=== PATIENT | male | born 1990 | race Caucasian/White ===

== ENCOUNTER 2016-12-06 09:28 | Emergency (ER) | payer MEDICAID ==
[~2016-12-06] VITALS: Ht 188 cm; Wt 113.4 kg
[2016-12-06 09:35] VITALS: BP 144/95
[2016-12-06 09:59] LABS: Basophils # (auto) 0 uL; Basophils % (auto) 0.5 % (0.0-2.0); Eosinophils # (auto) 0.1 uL; Eosinophils % (auto) 1.1 % (0.0-7.0); Hematocrit 50.3 % (41.0-53.0); Hemoglobin 16.9 g/dL (13.5-17.5); Lymphocytes # (auto) 1.3 uL; Lymphocytes % (auto) 16.8 % (10.0-50.0); Mean Corpuscular Hgb Conc. 33.6 g/dL (32.0-36.0); Mean Corpuscular Volume 89.2 fL (80.0-100.0); Mean Platelet Volume 7.8 fL (7.4-10.4); Monocytes # (auto) 1.2 uL; Monocytes % (auto) 16.3 % (0.0-12.0); Neutrophils % (auto) 65.3 % (37.0-80.0); Platelet Count (auto) 205 10^3/uL (140-450); Red Cell Distribution Width 12.8 % (11.6-16.0); White Blood Cell 7.6 10^3/uL (4.4-10.8)
[2016-12-06 10:26] LABS: Albumin 4.2 g/dL (3.4-5.0); BUN/Creatinine Ratio 10.7; Bilirubin, Total 0.6 mg/dL (0.2-1.0); Potassium 3.5 mmol/L (3.5-5.1); Total Protein 7.9 g/dL (6.4-8.2)
[2016-12-06] MEDS ORDERED: SODIUM CHLORIDE 0.9% 1,000 ML IV ONE (11:59)
== END 2016-12-06 14:57 | disposition home or self-care (01) ==
LOC: ER 09:29
DX: B34.9 Viral infection, unspecified (principal)
CPT/HCPCS: 36415; 74176; 80053; 82150; 85025; 96360; 99285; J7030

== ENCOUNTER 2022-01-26 11:40 | Inpatient (IN) | payer MEDICAID ==
[~2022-01-26] VITALS: Ht 190.5 cm; Wt 117.9 kg
[2022-01-26] MEDS ORDERED: MORPHINE SULFATE 4 MG/ML SYR/VIAL IV ONE (12:00)
[2022-01-26] MEDS ORDERED: ONDANSETRON HCL 4 MG/2 ML VIAL IV ONE (12:00)
[2022-01-26] MEDS ORDERED: SODIUM CHLORIDE 0.9% 1,000 ML IVB ONE (12:00)
[2022-01-26 12:22] LABS: Basophils # (auto) 0.1 10 ^3/uL (0-0.2); Basophils % (auto) 0.8 % (0.0-2.0); Eosinophils # (auto) 0.1 10 ^3/uL (0-0.8); Eosinophils % (auto) 1.3 % (0.0-7.0); Hematocrit 50.4 % (41.0-53.0); Hemoglobin 17.6 g/dL (13.5-17.5); Lymphocytes # (auto) 2.3 10 ^3/uL (0.4-5.4); Lymphocytes % (auto) 21.3 % (10.0-50.0); Mean Corpuscular Hemoglobin 31.3 pg (28.0-32.0); Mean Corpuscular Hgb Conc. 34.9 g/dL (32.0-36.0); Mean Corpuscular Volume 89.9 fL (80.0-100.0); Monocytes # (auto) 0.8 10 ^3/uL (0-1.3); Neutrophils # (auto) 7.5 10 ^3/uL (1.6-8.6); Neutrophils % (auto) 69.6 % (37.0-80.0); Nucleated Red Blood Cells % 0.1 %; White Blood Cell 10.8 10^3/uL (4.4-10.8)
[2022-01-26 12:28] LABS: Albumin 4.3 g/dL (3.4-5.0); BUN/Creatinine Ratio 10.4; Calcium 9.6 mg/dL (8.5-10.1); INR 1.01 (0.9-1.15); Partial Thromboplastin Time 27.7 sec (23.6-33.0); Potassium 3.6 mmol/L (3.5-5.1)
[2022-01-26 12:31] LABS: Bilirubin, Total 0.6 mg/dL (0.2-1.0); Total Protein 8.4 g/dL (6.4-8.2)
[2022-01-26 12:45] VITALS: BP 131/81
[2022-01-26] MEDS ORDERED: IOHEXOL 300 MG/ML 100ML BOTTLE IJ ONE (13:32)
[2022-01-26] MEDS ORDERED: KETOROLAC TROMETH 30 MG/ML 1ML VIAL IV ONE (14:30)
[2022-01-26] MEDS ORDERED: SOD CHL 0.9%/ KCL 20MEQ 1,000 ML IV SCH (15:00)
[2022-01-26] MEDS ORDERED: MORPHINE SULFATE 4 MG/ML SYR/VIAL IV PRN (15:00)
[2022-01-26] MEDS ORDERED: ACETAMINOPHEN 325 MG TAB PO PRN (15:00)
[2022-01-26] MEDS ORDERED: PROMETHAZINE HCL 25 MG/ML 1ML IM PRN (15:00)
[2022-01-26] MEDS ORDERED: ONDANSETRON HCL 4 MG/2 ML VIAL IV PRN (15:00)
[2022-01-26] MEDS ORDERED: HYDROcodone-ACET 5/325MG TAB PO PRN (15:00)
[2022-01-26 16:04] LABS: Amphetamine Screen, Urine NEGATIVE (NEGATIVE); Barbiturate Scree,Urine NEGATIVE (NEGATIVE); Benzodiazephine Screen, Urine NEGATIVE (NEGATIVE); Cannabinoid Screen, Urine POSITIVE (NEGATIVE); Cocaine Screen, Urine NEGATIVE (NEGATIVE); Opiate Scree,Urine POSITIVE (NEGATIVE); Phencyclidine Screen, Urine NEGATIVE (NEGATIVE)
[2022-01-26 16:21] LABS: Urine Bacteria NONE SEEN /hpf (None Seen); Urine Blood 2+ /uL (Negative); Urine Mucus FEW (None Seen); Urine Specific Gravity > 1.050 (1.001-1.035); Urine WBC 12 /hpf (0 - 3)
[2022-01-26] MEDS ORDERED: ONDA-144 PO (17:00)
[2022-01-26] MEDS ORDERED: TRAM50TA2 PO (17:00)
== END 2022-01-26 17:21 | disposition home or self-care (01) | DRG 465 ==
LOC: ER 11:40 → TELE 14:36
PROVIDERS: ADMIT Internal Medicine; ATTEND Internal Medicine
DX: N13.2 Hydronephrosis with renal and ureteral calculous obstruction (principal); F12.90 Cannabis use, unspecified, uncomplicated; F17.210 Nicotine dependence, cigarettes, uncomplicated
CPT/HCPCS: 36415; 74177; 76775; 80053; 80307; 81001; 83690; 85025; 85610; 85730; 96361; 96365; 96375; G0378; J1885; J2405

== ENCOUNTER 2022-03-14 22:42 | Emergency (ER) | payer MEDICAID ==
[~2022-03-14] VITALS: Ht 190.5 cm; Wt 113.4 kg
[~2022-03-14 22:42] MED LIST: ONDA-144 PO
[2022-03-14] MEDS ORDERED: ONDANSETRON HCL 4 MG/2 ML VIAL IV ONE (23:15)
[2022-03-14] MEDS ORDERED: ONDANSETRON HCL 4 MG/2 ML VIAL ONE (23:20)
[2022-03-14] MEDS ORDERED: SODIUM CHLORIDE 0.9% 1,000 ML IV ONE (23:30)
[2022-03-15] MEDS ORDERED: MORPHINE SULFATE 4 MG/ML SYR/VIAL IV ONE (00:15)
[2022-03-15] MEDS ORDERED: SODIUM CHLORIDE 0.9% 1,000 ML IVB ONE (00:15)
[2022-03-15] MEDS ORDERED: IOHEXOL 350 MG/ML 100ML IJ ONE (00:31)
[2022-03-15] MEDS ORDERED: ONDANSETRON HCL 4 MG/2 ML VIAL IV ONE (00:45)
[2022-03-15 01:15] LABS: Basophils # (auto) 0 10 ^3/uL (0-0.2); Basophils % (auto) 0.2 % (0.0-2.0); Eosinophils # (auto) 0 10 ^3/uL (0-0.8); Eosinophils % (auto) 0.3 % (0.0-7.0); Hematocrit 47.7 % (41.0-53.0); Hemoglobin 16.5 g/dL (13.5-17.5); Lymphocytes # (auto) 1.6 10 ^3/uL (0.4-5.4); Lymphocytes % (auto) 11.5 % (10.0-50.0); Mean Corpuscular Hemoglobin 31.2 pg (28.0-32.0); Mean Corpuscular Hgb Conc. 34.6 g/dL (32.0-36.0); Monocytes # (auto) 0.6 10 ^3/uL (0-1.3); Monocytes % (auto) 4.7 % (0.0-12.0); Neutrophils # (auto) 11.4 10 ^3/uL (1.6-8.6); Neutrophils % (auto) 83.3 % (37.0-80.0); Red Cell Distribution Width 13.1 % (11.8-14.3); White Blood Cell 13.7 10^3/uL (4.4-10.8)
[2022-03-15 01:35] LABS: Albumin 4.2 g/dL (3.4-5.0); BUN/Creatinine Ratio 7.1; Calcium 9.1 mg/dL (8.5-10.1); Potassium 3.6 mmol/L (3.5-5.1)
[2022-03-15 01:38] LABS: Bilirubin, Total 0.6 mg/dL (0.2-1.0); Lactic Acid w/Reflex 3.1 mmol/L (0.4-2.0); Total Protein 7.9 g/dL (6.4-8.2)
[2022-03-15] MEDS ORDERED: KETOROLAC TROMETH 30 MG/ML 1ML VIAL IV ONE (02:45)
[2022-03-15 02:54] LABS: Urine Bacteria NONE SEEN /hpf (None Seen); Urine Blood 2+ /uL (Negative); Urine Mucus FEW (None Seen); Urine WBC 1 /hpf (0 - 3)
[2022-03-15 02:55] LABS: Urine Specific Gravity > 1.050 (1.001-1.035)
[2022-03-15 03:00] VITALS: BP 101/43
[2022-03-15] MEDS ORDERED: IBUP600T28 PO (03:31)
== END 2022-03-15 03:49 | disposition home or self-care (01) ==
LOC: ER 22:42
DX: N20.1 Calculus of ureter (principal); F17.210 Nicotine dependence, cigarettes, uncomplicated; F12.10 Cannabis abuse, uncomplicated
CPT/HCPCS: 36415; 74177; 80053; 81001; 83605; 85025; 96361; 96374; 96375; 96376; 99285; J1885; J2270; J2405; J7030; Q9967

== ENCOUNTER 2022-03-28 10:50 | Inpatient (IN) | payer MEDICAID ==
[~2022-03-28] VITALS: Ht 190.5 cm; Wt 122.3 kg
[~2022-03-28 10:50] MED LIST changes: +IBUP600T28 PO
[2022-03-28] MEDS ORDERED: FAMOTIDINE (10MG/ML) 2ML VL IV ONE (11:45)
[2022-03-28] MEDS ORDERED: ALUM & MAG HYDROX-SIMETH LIQ(MAALOX) 30 ML PO ONE (11:45)
[2022-03-28] MEDS ORDERED: LACTATED RINGER'S 1,000 ML IV ONE ×2 (11:45→15:30)
[2022-03-28] MEDS ORDERED: ONDANSETRON HCL 4 MG/2 ML VIAL IV ONE ×2 (11:45→13:30)
[2022-03-28 11:48] LABS: Urine Bacteria NONE SEEN /hpf (None Seen); Urine Blood 3+ /uL (Negative); Urine Mucus FEW (None Seen); Urine Specific Gravity 1.039 (1.001-1.035); Urine WBC 3 /hpf (0 - 3)
[2022-03-28 12:00] LABS: Basophils # (auto) 0.1 10 ^3/uL (0-0.2); Basophils % (auto) 0.5 % (0.0-2.0); Eosinophils # (auto) 0.2 10 ^3/uL (0-0.8); Eosinophils % (auto) 1.4 % (0.0-7.0); Hematocrit 50.2 % (41.0-53.0); Hemoglobin 17.3 g/dL (13.5-17.5); Lymphocytes # (auto) 2.2 10 ^3/uL (0.4-5.4); Lymphocytes % (auto) 19.5 % (10.0-50.0); Mean Corpuscular Hemoglobin 31.2 pg (28.0-32.0); Mean Corpuscular Hgb Conc. 34.5 g/dL (32.0-36.0); Mean Corpuscular Volume 90.4 fL (80.0-100.0); Monocytes % (auto) 9.1 % (0.0-12.0); Neutrophils # (auto) 7.8 10 ^3/uL (1.6-8.6); Neutrophils % (auto) 69.5 % (37.0-80.0); Red Blood Cells 5.55 10^6/uL (4.5-5.90); Red Cell Distribution Width 13.5 % (11.8-14.3); White Blood Cell 11.2 10^3/uL (4.4-10.8)
[2022-03-28 12:10] LABS: Amphetamine Screen, Urine NEGATIVE (NEGATIVE); Barbiturate Scree,Urine NEGATIVE (NEGATIVE); Benzodiazephine Screen, Urine NEGATIVE (NEGATIVE); Cocaine Screen, Urine NEGATIVE (NEGATIVE); Opiate Scree,Urine POSITIVE (NEGATIVE); Phencyclidine Screen, Urine NEGATIVE (NEGATIVE)
[2022-03-28 12:18] LABS: Cannabinoid Screen, Urine POSITIVE (NEGATIVE)
[2022-03-28 12:51] LABS: Albumin 4.8 g/dL (3.4-5.0); BUN/Creatinine Ratio 11.2; Potassium 3.7 mmol/L (3.5-5.1)
[2022-03-28 12:54] LABS: Bilirubin, Total 1.3 mg/dL (0.2-1.0); Total Protein 8.7 g/dL (6.4-8.2)
[2022-03-28] MEDS ORDERED: ONDANSETRON HCL 4 MG/2 ML VIAL ONE (13:16)
[2022-03-28] MEDS ORDERED: METOCLOPRAMIDE HCL 5MG/ml INJ 2ml VIAL IV ONE (14:00)
[2022-03-28] MEDS ORDERED: NITROGLYCERIN 0.4 MG SL TAB SL PRN (14:15)
[2022-03-28] MEDS ORDERED: MORPHINE SULFATE INJECTION 2 MG/ML SYRG IV PRN (14:30)
[2022-03-28] MEDS ORDERED: MORPHINE SULFATE INJECTION 2 MG/ML SYRG IV ONE (14:30)
[2022-03-28] MEDS ORDERED: DOCUSATE SOD 100 MG CAP PO PRN (15:30)
[2022-03-28] MEDS ORDERED: cefTRIAXone 1GM/50ML D5W 50 ML IV ONE ×2 (15:30→16:00)
[2022-03-28] MEDS ORDERED: KETOROLAC TROMETH 30 MG/ML 1ML VIAL IV PRN (15:30)
[2022-03-28] MEDS ORDERED: LORazepam 0.5 MG TAB PO PRN (15:30)
[2022-03-28] MEDS ORDERED: hydrALAZINE HCL 20 MG/ML VL IV PRN (15:30)
[2022-03-28 16:27] LABS: Magnesium 2.5 mg/dL (1.6-2.6); Phosphorus 2.2 mg/dL (2.5-4.90)
[2022-03-28] MEDS ORDERED: MANNITOL FTV 25% 12.5 GM/50 ML 50 ML IV ONE ×2 (16:45→18:15)
[2022-03-28] MEDS ORDERED: SODIUM CHLORIDE 0.9% 1,000 ML IV ONE (16:45)
[2022-03-28 17:33] LABS: INR 1.1 (0.9-1.15); Partial Thromboplastin Time 29.5 sec (23.6-33.0)
[2022-03-28] MEDS: TAMSULOSIN HYDROCHLORIDE 0.4 MG CAP PO SCH (18:25)
[2022-03-28] MEDS: SODIUM CHLORIDE 0.9% 1,000 ML IV SCH (18:53)
[2022-03-28 19:50] VITALS: BP 146/75
[2022-03-28] MEDS: MORPHINE SULFATE INJECTION 2 MG/ML SYRG IV PRN (21:30)
[2022-03-28 22:00] VITALS: BP 146/75
[2022-03-29] MEDS: HYDROcodone-ACET 5/325MG TAB PO PRN ×2 (00:53→21:47)
[2022-03-29 05:07] VITALS: BP 145/70
[2022-03-29 06:50] LABS: Magnesium 2.2 mg/dL (1.6-2.6); Potassium 3.8 mmol/L (3.5-5.1)
[2022-03-29 07:01] LABS: Basophils # (auto) 0 10 ^3/uL (0-0.2); Basophils % (auto) 0.1 % (0.0-2.0); Eosinophils # (auto) 0 10 ^3/uL (0-0.8); Eosinophils % (auto) 0.2 % (0.0-7.0); Hematocrit 42.2 % (41.0-53.0); Hemoglobin 14.9 g/dL (13.5-17.5); INR 1.07 (0.9-1.15); Lymphocytes # (auto) 2.1 10 ^3/uL (0.4-5.4); Lymphocytes % (auto) 13.7 % (10.0-50.0); Mean Corpuscular Hemoglobin 31.6 pg (28.0-32.0); Mean Corpuscular Hgb Conc. 35.2 g/dL (32.0-36.0); Mean Corpuscular Volume 89.9 fL (80.0-100.0); Monocytes # (auto) 1.5 10 ^3/uL (0-1.3); Monocytes % (auto) 9.6 % (0.0-12.0); Neutrophils # (auto) 11.6 10 ^3/uL (1.6-8.6); Neutrophils % (auto) 76.4 % (37.0-80.0); Partial Thromboplastin Time 30.2 sec (23.6-33.0); Red Cell Distribution Width 13.2 % (11.8-14.3); White Blood Cell 15.2 10^3/uL (4.4-10.8)
[2022-03-29 07:02] LABS: Albumin 3.7 g/dL (3.4-5.0); BUN/Creatinine Ratio 9.9; Bilirubin, Total 0.8 mg/dL (0.2-1.0); CRP High Sensitivity 2.96 mg/dL (< 0.3); Calcium 8.9 mg/dL (8.5-10.1); Total Protein 7.1 g/dL (6.4-8.2); Uric Acid 9.7 mg/dL (3.5-7.2)
[2022-03-29] MEDS: SODIUM CHLORIDE 0.9% 1,000 ML IV SCH (08:10)
[2022-03-29 09:00] VITALS: BP 118/74
[2022-03-29] MEDS ORDERED: cefTRIAXone 1GM/50ML D5W 50 ML IV SCH (09:00)
[2022-03-29] MEDS ORDERED: MANNITOL FTV 25% 12.5 GM/50 ML 50 ML IV ONE ×2 (09:15→18:30)
[2022-03-29] MEDS ORDERED: SODIUM CHLORIDE 0.9% 1,000 ML IV ONE (09:15)
[2022-03-29 10:32] LABS: Amphetamine Screen, Urine NEGATIVE (NEGATIVE); Barbiturate Scree,Urine NEGATIVE (NEGATIVE); Benzodiazephine Screen, Urine NEGATIVE (NEGATIVE); Cannabinoid Screen, Urine POSITIVE (NEGATIVE); Opiate Scree,Urine POSITIVE (NEGATIVE); Phencyclidine Screen, Urine NEGATIVE (NEGATIVE); Protein, Urine 89.7 mg/dL (0.0-11.9)
[2022-03-29 10:39] LABS: Cocaine Screen, Urine NEGATIVE (NEGATIVE)
[2022-03-29] MEDS: FAMOTIDINE (10MG/ML) 2ML VL IV SCH (11:42)
[2022-03-29] MEDS: MORPHINE SULFATE INJECTION 2 MG/ML SYRG IV PRN (11:43)
[2022-03-29] MEDS: cefTRIAXone 1GM/50ML D5W 50 ML IV SCH (11:44)
[2022-03-29] MEDS: ENOXAPARIN SOD 40 MG/0.4 ML SYRINGE SC SCH (11:44)
[2022-03-29] MEDS ORDERED: ePHEDrine SULFATE 50 MG/ML AMP IV ONE (12:29)
[2022-03-29 13:00] VITALS: BP 161/91
[2022-03-29] MEDS ORDERED: SUCCINYLCHOLINE CHLORIDE 20 MG/ML 10ML VIAL IV ONE (16:34)
[2022-03-29] MEDS ORDERED: MIDAZOLAM HCL 2MG/2ML 2ml VIAL (1mg/ml) ONE (16:40)
[2022-03-29] MEDS ORDERED: fentaNYL CITRATE 100 MCG/2 ML VL ONE (16:40)
[2022-03-29] MEDS ORDERED: LIDOCAINE HCL 100 MG/5ML (2%) SYRG INJ IV ONE (17:15)
[2022-03-29] MEDS ORDERED: PROPOFOL 10 MG/ML 20 ML IV ONE (17:15)
[2022-03-29] MEDS ORDERED: METOCLOPRAMIDE HCL 5MG/ml INJ 2ml VIAL ONE (17:16)
[2022-03-29] MEDS ORDERED: ONDANSETRON HCL 4 MG/2 ML VIAL ONE (17:16)
[2022-03-29] MEDS ORDERED: DexAMETHasone SOD PHOS 10MG/1ML VIAL INJ ONE (17:16)
[2022-03-29] MEDS: TAMSULOSIN HYDROCHLORIDE 0.4 MG CAP PO SCH (18:00)
[2022-03-29] MEDS ORDERED: MANNITOL FTV 25% 12.5 GM/50 ML 0 ML IV ONE (18:28)
[2022-03-29] MEDS ORDERED: METOCLOPRAMIDE HCL 5MG/ml INJ 2ml VIAL IV PRN (18:30)
[2022-03-29] MEDS ORDERED: ONDANSETRON HCL 4 MG/2 ML VIAL IV PRN (18:30)
[2022-03-29] MEDS ORDERED: fentaNYL CITRATE 100 MCG/2 ML VL IV PRN (18:30)
[2022-03-29] MEDS: HYDROmorphone HCL 2 MG/ML VL/or syr IV PRN ×3 (18:34→18:54)
[2022-03-29 22:00] VITALS: BP 132/71
[2022-03-30] MEDS: SODIUM CHLORIDE 0.9% 1,000 ML IV SCH (00:50)
[2022-03-30 05:00] VITALS: BP 107/67
[2022-03-30] MEDS: HYDROcodone-ACET 5/325MG TAB PO PRN (05:27)
[2022-03-30 06:25] LABS: Basophils # (auto) 0 10 ^3/uL (0-0.2); Eosinophils # (auto) 0 10 ^3/uL (0-0.8); Hematocrit 40.5 % (41.0-53.0); Hemoglobin 14.1 g/dL (13.5-17.5); Lymphocytes # (auto) 0.7 10 ^3/uL (0.4-5.4); Lymphocytes % (auto) 6.5 % (10.0-50.0); Mean Corpuscular Hemoglobin 31.1 pg (28.0-32.0); Mean Corpuscular Hgb Conc. 34.9 g/dL (32.0-36.0); Mean Corpuscular Volume 89.2 fL (80.0-100.0); Monocytes # (auto) 0.3 10 ^3/uL (0-1.3); Neutrophils # (auto) 10.2 10 ^3/uL (1.6-8.6); Neutrophils % (auto) 90.5 % (37.0-80.0); Red Blood Cells 4.53 10^6/uL (4.5-5.90); White Blood Cell 11.3 10^3/uL (4.4-10.8)
[2022-03-30 06:30] LABS: BUN/Creatinine Ratio 11.4; Calcium 8.9 mg/dL (8.5-10.1); Potassium 4.2 mmol/L (3.5-5.1)
[2022-03-30 08:00] VITALS: BP 101/56
[2022-03-30] MEDS: FAMOTIDINE (10MG/ML) 2ML VL IV SCH (08:09)
[2022-03-30] MEDS: cefTRIAXone 1GM/50ML D5W 50 ML IV SCH (08:09)
[2022-03-30] MEDS: ENOXAPARIN SOD 40 MG/0.4 ML SYRINGE SC SCH (10:00)
[2022-03-30 12:00] VITALS: BP 120/79
[2022-03-30 12:51] VITALS: BP 101/56
== END 2022-03-30 12:50 | disposition home or self-care (01) | DRG 446 ==
LOC: ER 10:50 → OVERFLOW 14:14 → CENTRAL 19:49
PROVIDERS: ADMIT Hospitalist; ATTEND Internal Medicine
PROC: 0TC78ZZ Extirpation of Matter from Left Ureter, Via Natural or Artificial Opening Endoscopic (ICD-10-PCS; principal; 2022-03-29 16:49)
DX: N13.6 Pyonephrosis (principal); N17.0 Acute kidney failure with tubular necrosis; E66.01 Morbid (severe) obesity due to excess calories; F17.210 Nicotine dependence, cigarettes, uncomplicated; Z20.822 Contact with and (suspected) exposure to COVID-19; N18.31 Chronic kidney disease, stage 3a; N20.2 Calculus of kidney with calculus of ureter; Z68.33 Body mass index [BMI] 33.0-33.9, adult
CPT/HCPCS: 36415; 74018; 74176; 76775; 80048; 80053; 80061; 80307; 81001; 82550; 82728; 83036; 83615; 83690; 83735; 83880; 84100; 84156; 84443; 84484; 84550; 85025; 85379; 85610; 85652; 85730; 86141; 86850; 86900; 86901; 87040; 87086; 93005; 96361; 96365; 96367; 96375; 96376; G0378; J0330; J0696; J1100; J2250; J2405; J2704; J3490

== ENCOUNTER 2022-07-13 17:35 | Inpatient (IN) | payer MEDICAID, OTHER ==
[~2022-07-13] VITALS: Ht 190.5 cm; Wt 112.9 kg
[2022-07-13] MEDS ORDERED: PROCHLORPERAZINE EDISYLATE 5 MG/ML 2ML VIAL IV ONE (18:45)
[2022-07-13] MEDS ORDERED: SODIUM CHLORIDE 0.9% 1,000 ML IVB ONE (18:45)
[2022-07-13] MEDS ORDERED: MORPHINE SULFATE INJ 2 MG/ml SYRG IV ONE (18:45)
[2022-07-13] MEDS ORDERED: PANTOPRAZOLE 40 MG/10 ML VIAL INJ IV ONE (18:45)
[2022-07-13 19:23] LABS: Potassium 3.4 mmol/L (3.5-5.1)
[2022-07-13 19:26] LABS: Basophils # (auto) 0.1 10 ^3/uL (0-0.2); Basophils % (auto) 0.3 % (0.0-2.0); Eosinophils # (auto) 0 10 ^3/uL (0-0.8); Neutrophils % (auto) 81.9 % (37.0-80.0)
[2022-07-13 19:28] LABS: Lymphocytes # (auto) 2.2 10 ^3/uL (0.4-5.4); Lymphocytes % (auto) 10.5 % (10.0-50.0); Mean Corpuscular Hemoglobin 30.3 pg (28.0-32.0); Mean Corpuscular Hgb Conc. 33.8 g/dL (32.0-36.0); Mean Corpuscular Volume 89.8 fL (80.0-100.0); Monocytes # (auto) 1.5 10 ^3/uL (0-1.3); Monocytes % (auto) 7.3 % (0.0-12.0); Nucleated Red Blood Cells % 1.5 %; Red Blood Cells 7.01 10^6/uL (4.5-5.90); Red Cell Distribution Width 13.3 % (11.8-14.3); White Blood Cell 20.7 10^3/uL (4.4-10.8)
[2022-07-13 19:30] LABS: Albumin 6.5 g/dL (3.4-5.0); Amylase 61 U/L (25-115); BUN/Creatinine Ratio 6.4; Bilirubin, Total 1.5 mg/dL (0.2-1.0); Calcium 12.1 mg/dL (8.5-10.1); Lipase 112 U/L (73-393); Total Protein 11.9 g/dL (6.4-8.2)
[2022-07-13 19:41] LABS: Hematocrit 62.9 % (41.0-53.0); Hemoglobin 21.3 g/dL (13.5-17.5)
[2022-07-13] MEDS ORDERED: HYDROcodone-ACET 5/325MG TAB PO PRN (21:30)
[2022-07-13] MEDS ORDERED: ACETAMINOPHEN 325 MG TAB PO PRN (21:30)
[2022-07-13] MEDS ORDERED: MORPHINE SULFATE INJ 2 MG/ml SYRG IV PRN ×2 (21:30→22:15)
[2022-07-13] MEDS ORDERED: cefTRIAXone 1GM/50ML D5W 50 ML IV ONE (21:30)
[2022-07-13] MEDS ORDERED: DEXTROSE (50%) 50ML SYRG IV PRN (21:30)
[2022-07-13] MEDS ORDERED: PROCHLORPERAZINE EDISYLATE 5 MG/ML 2ML VIAL IV PRN (21:30)
[2022-07-13] MEDS ORDERED: DOCUSATE SOD 100 MG CAP PO PRN (21:30)
[2022-07-13] MEDS: SODIUM CHLOR 0.9% PF (SALINE LOCK) 10ML VIAL/SYR IV SCH (22:00)
[2022-07-13] MEDS ORDERED: NITROGLYCERIN 0.4 MG SL TAB SL PRN (22:15)
[2022-07-13] MEDS ORDERED: POTASSIUM CHL 20 Meq TABLET PO ONE (23:00)
[2022-07-14 01:20] VITALS: BP 146/96
[2022-07-14] MEDS: ONDANSETRON HCL 4 MG/2 ML VIAL IV PRN (01:55)
[2022-07-14] MEDS: ACCU-CHEK COMFORT CURVE STRIP VI SCH ×4 (04:10→12:05)
[2022-07-14] MEDS: InsuLIN REG 1unit/0.01ml Soln (100units/ml) SC SCH ×4 (04:12→12:00)
[2022-07-14 04:45] LABS: Basophils # (auto) 0.1 10 ^3/uL (0-0.2); Basophils % (auto) 0.3 % (0.0-2.0); Eosinophils # (auto) 0 10 ^3/uL (0-0.8); Nucleated Red Blood Cells % 0.1 %; White Blood Cell 19.7 10^3/uL (4.4-10.8)
[2022-07-14 04:49] LABS: Hematocrit 52.6 % (41.0-53.0); Hemoglobin 17.7 g/dL (13.5-17.5); Lymphocytes # (auto) 1.4 10 ^3/uL (0.4-5.4); Lymphocytes % (auto) 7.3 % (10.0-50.0); Mean Corpuscular Hemoglobin 29.9 pg (28.0-32.0); Mean Corpuscular Hgb Conc. 33.7 g/dL (32.0-36.0); Mean Corpuscular Volume 88.7 fL (80.0-100.0); Monocytes # (auto) 0.9 10 ^3/uL (0-1.3); Monocytes % (auto) 4.7 % (0.0-12.0); Neutrophils # (auto) 17.3 10 ^3/uL (1.6-8.6); Neutrophils % (auto) 87.7 % (37.0-80.0); Red Blood Cells 5.93 10^6/uL (4.5-5.90); Red Cell Distribution Width 12.9 % (11.8-14.3)
[2022-07-14 04:50] LABS: Albumin 4.8 g/dL (3.4-5.0); Calcium 9.7 mg/dL (8.5-10.1)
[2022-07-14 04:51] VITALS: BP 136/88
[2022-07-14 04:54] LABS: BUN/Creatinine Ratio 10.9; Bilirubin, Total 0.9 mg/dL (0.2-1.0)
[2022-07-14 05:53] LABS: Urine Bacteria FEW /hpf (None Seen); Urine Blood 1+ /uL (Negative); Urine Hyaline Cast MANY /lpf (0 - 2); Urine Mucus FEW (None Seen); Urine Specific Gravity 1.032 (1.001-1.035); Urine WBC 29 /hpf (0 - 3)
[2022-07-14] MEDS: SODIUM CHLOR 0.9% PF (SALINE LOCK) 10ML VIAL/SYR IV SCH ×3 (06:00→21:30)
[2022-07-14] MEDS: HEPARIN SODIUM (PORCINE) 5000 UNITS/ML 1ML VIAL SC SCH ×2 (08:11→21:29)
[2022-07-14] MEDS: cefTRIAXone 1GM/50ML D5W 50 ML IV SCH (08:11)
[2022-07-14 09:00] VITALS: BP 138/89
[2022-07-14] MEDS ORDERED: SODIUM CHLORIDE 0.9% 1,000 ML IV SCH (10:15)
[2022-07-14] MEDS: SODIUM CHLORIDE 0.9% 1,000 ML IV SCH ×2 (11:23→20:47)
[2022-07-14 12:00] VITALS: BP 141/92
[2022-07-14 16:22] LABS: Basophils # (auto) 0.1 10 ^3/uL (0-0.2); Basophils % (auto) 0.4 % (0.0-2.0); Eosinophils # (auto) 0 10 ^3/uL (0-0.8); Eosinophils % (auto) 0.2 % (0.0-7.0); Hematocrit 49.4 % (41.0-53.0); Hemoglobin 16.6 g/dL (13.5-17.5); Lymphocytes # (auto) 2.8 10 ^3/uL (0.4-5.4); Lymphocytes % (auto) 15.2 % (10.0-50.0); Mean Corpuscular Hemoglobin 29.9 pg (28.0-32.0); Mean Corpuscular Hgb Conc. 33.6 g/dL (32.0-36.0); Monocytes # (auto) 1.6 10 ^3/uL (0-1.3); Monocytes % (auto) 8.9 % (0.0-12.0); Neutrophils # (auto) 13.9 10 ^3/uL (1.6-8.6); Neutrophils % (auto) 75.3 % (37.0-80.0); Red Blood Cells 5.55 10^6/uL (4.5-5.90); Red Cell Distribution Width 12.9 % (11.8-14.3); White Blood Cell 18.4 10^3/uL (4.4-10.8)
[2022-07-14 16:26] LABS: % Iron Saturation 62.5 % (20-55); Albumin 4.3 g/dL (3.4-5.0); Calcium 9.2 mg/dL (8.5-10.1); Potassium 3.2 mmol/L (3.5-5.1)
[2022-07-14 16:29] LABS: BUN/Creatinine Ratio 15.4; Bilirubin, Total 0.9 mg/dL (0.2-1.0); Total Protein 8.2 g/dL (6.4-8.2)
[2022-07-14 17:00] VITALS: BP 125/72
[2022-07-14] MEDS ORDERED: POTASSIUM EFFERVESENT TAB 25 MEQ GT ONE (17:45)
[2022-07-14] MEDS ORDERED: POTASSIUM EFFERVESENT TAB 25 MEQ PO ONE (18:00)
[2022-07-14 22:00] VITALS: BP 118/54
[2022-07-15 05:00] VITALS: BP 111/54
[2022-07-15] MEDS: SODIUM CHLOR 0.9% PF (SALINE LOCK) 10ML VIAL/SYR IV SCH ×3 (05:44→21:21)
[2022-07-15] MEDS: SODIUM CHLORIDE 0.9% 1,000 ML IV SCH ×3 (05:45→12:15)
[2022-07-15 08:08] LABS: Basophils # (auto) 0 10 ^3/uL (0-0.2); Basophils % (auto) 0.3 % (0.0-2.0); Eosinophils # (auto) 0.1 10 ^3/uL (0-0.8); Eosinophils % (auto) 0.9 % (0.0-7.0); Hematocrit 44.9 % (41.0-53.0); Hemoglobin 15.3 g/dL (13.5-17.5); Lymphocytes # (auto) 2.3 10 ^3/uL (0.4-5.4); Lymphocytes % (auto) 21.7 % (10.0-50.0); Mean Corpuscular Hemoglobin 30.5 pg (28.0-32.0); Mean Corpuscular Hgb Conc. 34.1 g/dL (32.0-36.0); Mean Corpuscular Volume 89.6 fL (80.0-100.0); Monocytes # (auto) 1.2 10 ^3/uL (0-1.3); Monocytes % (auto) 10.9 % (0.0-12.0); Neutrophils # (auto) 7.1 10 ^3/uL (1.6-8.6); Neutrophils % (auto) 66.2 % (37.0-80.0); Nucleated Red Blood Cells % 0.1 %; Red Blood Cells 5.01 10^6/uL (4.5-5.90); White Blood Cell 10.8 10^3/uL (4.4-10.8)
[2022-07-15 08:27] LABS: BUN/Creatinine Ratio 17.2; Calcium 8.9 mg/dL (8.5-10.1)
[2022-07-15 08:32] VITALS: BP 101/49
[2022-07-15] MEDS: HEPARIN SODIUM (PORCINE) 5000 UNITS/ML 1ML VIAL SC SCH ×2 (09:55→21:12)
[2022-07-15] MEDS: cefTRIAXone 1GM/50ML D5W 50 ML IV SCH (09:55)
[2022-07-15] MEDS: FAMOTIDINE (10MG/ML) 2ML VL IV SCH (09:55)
[2022-07-15 12:47] VITALS: BP 128/89
[2022-07-15 17:00] VITALS: BP 145/65
[2022-07-15 22:00] VITALS: BP 135/69
[2022-07-15] MEDS: ONDANSETRON HCL 4 MG/2 ML VIAL IV PRN (22:30)
[2022-07-16] MEDS: SODIUM CHLORIDE 0.9% 1,000 ML IV SCH ×3 (00:35→13:55)
[2022-07-16 05:00] VITALS: BP 121/62
[2022-07-16] MEDS: SODIUM CHLOR 0.9% PF (SALINE LOCK) 10ML VIAL/SYR IV SCH ×2 (06:05→14:02)
[2022-07-16 06:29] LABS: Basophils # (auto) 0 10 ^3/uL (0-0.2); Basophils % (auto) 0.3 % (0.0-2.0); Eosinophils # (auto) 0 10 ^3/uL (0-0.8); Eosinophils % (auto) 0.3 % (0.0-7.0); Hemoglobin 15.3 g/dL (13.5-17.5); Lymphocytes # (auto) 1.2 10 ^3/uL (0.4-5.4); Lymphocytes % (auto) 12.1 % (10.0-50.0); Mean Corpuscular Hemoglobin 30.6 pg (28.0-32.0); Mean Corpuscular Hgb Conc. 34.9 g/dL (32.0-36.0); Mean Corpuscular Volume 87.7 fL (80.0-100.0); Monocytes # (auto) 0.7 10 ^3/uL (0-1.3); Neutrophils % (auto) 80.3 % (37.0-80.0); Red Blood Cells 5.02 10^6/uL (4.5-5.90); Red Cell Distribution Width 12.6 % (11.8-14.3)
[2022-07-16 06:44] LABS: Albumin 3.8 g/dL (3.4-5.0); Calcium 8.8 mg/dL (8.5-10.1)
[2022-07-16 07:01] LABS: BUN/Creatinine Ratio 17.9; Bilirubin, Total 0.9 mg/dL (0.2-1.0); Phosphorus 3.1 mg/dL (2.5-4.90)
[2022-07-16 08:29] VITALS: BP 162/61
[2022-07-16] MEDS: HEPARIN SODIUM (PORCINE) 5000 UNITS/ML 1ML VIAL SC SCH (10:00)
[2022-07-16] MEDS: FAMOTIDINE (10MG/ML) 2ML VL IV SCH (10:07)
[2022-07-16] MEDS: cefTRIAXone 1GM/50ML D5W 50 ML IV SCH (10:07)
[2022-07-16 10:52] LABS: Ferritin 380.7 ng/mL (10-322)
[2022-07-16 10:53] LABS: Folate (Folic Acid) 19.04 ng/mL (5.38-24)
[2022-07-16 12:41] VITALS: BP 102/62
[2022-07-16 12:45] LABS: Hepatitis A Ab IgM Negative; Hepatitis C Antibody Negative (Negative)
[2022-07-16 12:46] LABS: Hepatitis B Core IgM Negative
== END 2022-07-16 16:00 | disposition home or self-care (01) | DRG 720 ==
LOC: ER 17:35 → OVERFLOW 22:03 → EAST 23:48
PROVIDERS: ADMIT Nurse Practitioner Family; ATTEND Family Medicine
DX: A41.9 Sepsis, unspecified organism (principal); N17.9 Acute kidney failure, unspecified; N39.0 Urinary tract infection, site not specified; N20.0 Calculus of kidney; D45 Polycythemia vera; E86.0 Dehydration; E66.01 Morbid (severe) obesity due to excess calories; N18.31 Chronic kidney disease, stage 3a; Z20.822 Contact with and (suspected) exposure to COVID-19; F12.90 Cannabis use, unspecified, uncomplicated; R73.9 Hyperglycemia, unspecified; R74.8 Abnormal levels of other serum enzymes; Z68.31 Body mass index [BMI] 31.0-31.9, adult
CPT/HCPCS: 36415; 71250; 74176; 80048; 80053; 80074; 81001; 82105; 82150; 82550; 82607; 82668; 82728; 82746; 82962; 83036; 83540; 83550; 83615; 83690; 84100; 84155; 84165; 85025; 85045; 85652; 87040; 87077; 87186; 96361; 96374; 96375; C9113; G0378; J0696; J1815; J2405; J3490

== ENCOUNTER 2025-05-11 01:00 | Emergency (ER) | payer OTHER ==
[~2025-05-11] VITALS: Ht 190.5 cm; Wt 119.8 kg
[~2025-05-11 01:00] MED LIST changes: +IBUP1TAB5 PO; -IBUP600T28 PO
--- NOTE | 2025-05-11 01:29 | ED.PDOC ---
GI ASSESSMENT HPI Comments 34 year old male presents to the ED with a chief complaint of abdominal pain onset 1 day. Patient began experiencing abdominal pain, nausea, vomiting, excessive sweating and thirst 1 day ago, was seen at [facility], was told WBC were elevated, given fluids and was discharged. Patient states he began experiencing hematemesis, dizziness decided to come to ED. PMHx kidney stones. Denies headache, diarrhea, blood in stool, fevers, chills, cold, cough, congestion, sore throat. No other symptoms or modifying factors present at this time. Chief Complaint: Abdominal Pain Time Seen by MD: 01:20 Primary Care Provider: WILLIAN Reviewed Notes: Medications, Allergies Allergies: Coded Allergies: NO KNOWN ALLERGIES (Unverified , 01/06/15) Home Meds Active Scripts Famotidine (PEPCID TABLET) 20 Mg Tb, 1 TAB PO BID PRN, #60 TAB 5 Refills Prov:MIGUEL ANGEL SENA MD 05/11/25 Ondansetron HCl (Ondansetron Hydrochloride) 8 Mg Tab, 8 MG PO Q6HP PRN, #60 TAB Prov:MIGUEL ANGEL SENA MD 05/11/25 Ibuprofen Micronized (Ibuprofen) 600 Mg Tab, 600 MG PO Q6HPRN PRN for 7 Days, #28 TAB 0 Refills Prov:ARLETH BARTH MD 03/15/22 Ondansetron (Zofran) 4 Mg Tab, 1 TAB PO Q6HR, #20 TAB Prov:ELLEN YBARRA MD 01/26/22 Information Source: Patient Mode of Arrival: Ambulatory Timing: Days Duration: Since onset Prehospital treatment: None Quality: Sharp Vomitus: Streaking Blood Severity: Moderate Recent: None Recent Hx of: None Pain Location: Diffuse Associated sign and symptoms: Nausea, Vomiting, Hematemesis, Abdominal Pain Past Medical History PAST MEDICAL HISTORY: Kidney Stones Surgical History: Denies all surgeries Family History Family History: Reviewed,noncontributory to illness Social History Smoker: Cigarettes Alcohol: Denies ETOH Use Drugs: Marijuana Lives In: Home Constitutional: denies: chills, diaphoresis, fatigue, fever, malaise, sweats, weakness, others EENTM: denies: blurred vision, double vision, ear bleeding, ear discharge, ear drainage, ear pain, ear ringing, eye pain, eye redness, hearing loss, mouth pain, mouth swelling, nasal discharge, nose bleeding, nose congestion, nose pain, photophobia, tearing, throat pain, throat swelling, voice changes, others Respiratory: denies: cough, hemoptysis, orthopnea, SOB at rest, shortness of breath, SOB with excertion, stridor, wheezing, others Cardiovascular: denies: chest pain, dizzy spells, diaphoresis, Dyspnea on exertion, edema, irregular heart beat, left arm pain, lightheadedness, palpitations, PND, syncope, others Gastrointestinal: reports: abdominal pain, hematemesis, nausea, poor appetite, poor fluid intake, vomiting; denies: abdomen distended, blood streaked bowels, constipated, diarrhea, dysphagia, difficulty swallowing, melena, rectal bleeding, rectal pain, others Genitourinary: denies: burning, dysuria, flank pain, frequency, hematuria, incontinence, penile discharge, penile sore, pain, testicle pain, testicle swelling, urgency, others Neurological: denies: dizziness, fainting, headache, left sided numbness, left sided weakness, numbness, paresthesia, pre-existing deficit, right sided numbness, right sided weakness, seizure, speech problems, tingling, tremors, weakness, others Musculoskeletal: denies: back pain, gout, joint pain, joint swelling, muscle pain, muscle stiffness, neck pain, others Integumetry: denies: bruises, change in color, change in hair/nails, dryness, laceration, lesions, lumps, rash, wounds, others Allergic/Immunocompromised: denies: Difficulty Healing, Frequent Infections, Hives, Itching, others Hematologic/Lymphatic: denies: anemia, blood clots, easy bleeding, easy bruising, swollen glands, others Endocrine: reports: excessive sweating, excessive thirst; denies: excessive hunger, excessive urination, flushing, intolerance to cold, intolerance to heat, unexplained weight gain, unexplained weight loss, others Psychiatric: denies: anxiety, bipolar disorder, depression, hopeless, panic disorder, schizophrenia, sleepless, suicidal, others All Other Systems: Reviewed and Negative Physical Exam General Appearance: Normal HEENT: Normal ENT Inspection, Pharynx Normal, TMs Normal Neck: Full Range of Motion, Non-Tender, Normal, Normal Inspection Respiratory: Chest Non-Tender, Lungs Clear, No Accessory Muscle Use, No Respiratory Distress, Normal Breath Sounds Cardiovascular: No Edema, No JVD, No Murmur, No Gallop, Normal Peripheral Pulses, Regular Rate/Rhythm Breast Exam: Deferred Gastrointestinal: No Organomegaly, Non Tender, No Pulsatile Mass, Normal Bowel Sounds, Soft Genitalia: Deferred Pelvic: Deferred Rectal: Deferred Extremities: No calf tenderness, Normal capillary refill, Normal inspection, Normal range of motion, Non-tender, No pedal edema Musculoskeletal : Apperance: Normal Neurologic: Alert, director athletic II-XII nml as Tested, No Motor Deficits, Normal Affect, Normal Mood, No Sensory Deficits Cerebellar Function: Normal Reflexes: Normal Skin: Dry, Normal Color, Warm Lymphatic: No Adenopathy Was a procedure done? Was a procedure done?: No GI differential Dx Differential Diagnosis: AAA, Aortic dissection, Bowel Obstruction, Cholangitis, Cholecystitis, Constipation, Diverticular disease, Gastritis/PUD, Gastroenteritis, GI hemorrhage, Pancreatitis, PID, Kidney Stone, Other X-Ray, Labs, Meds, VS Vital Signs Date Time Temp Pulse Resp B/P (MAP) Pulse Ox O2 Delivery O2 Flow Rate FiO2 05/11/25 02:49 98.3 62 20 151/88 (109) 98 98.3 05/11/25 01:13 97.6 62 16 133/73 (93) 98 97.6 Lab Test 05/11/25 01:20 Range/Units White Blood Count 12.0 H 4.4-10.8 10^3/uL Red Blood Count 5.48 4.5-5.90 10^6/uL Hemoglobin 16.8 13.5-17.5 g/dL Hematocrit 48.3 41.0-53.0 % Mean Corpuscular Volume 88.3 80.0-100.0 fL Mean Corpuscular Hemoglobin 30.6 28.0-32.0 pg Mean Corpuscular Hemoglobin Concent 34.7 32.0-36.0 g/dL Red Cell Distribution Width 13.3 11.8-14.3 % Platelet Count 243 140-450 10^3/uL Mean Platelet Volume 7.8 6.9-10.8 fL Neutrophils (%) (Auto) 85.3 H 37.0-80.0 % Lymphocytes (%) (Auto) 10.5 10.0-50.0 % Monocytes (%) (Auto) 3.9 0.0-12.0 % Eosinophils (%) (Auto) 0.0 0.0-7.0 % Basophils (%) (Auto) 0.3 0.0-2.0 % Neutrophils # (Auto) 10.2 H 1.6-8.6 10 ^3/uL Lymphocytes # (Auto) 1.3 0.4-5.4 10 ^3/uL Monocytes # (Auto) 0.5 0-1.3 10 ^3/uL Eosinophils # (Auto) 0 0-0.8 10 ^3/uL Basophils # (Auto) 0 0-0.2 10 ^3/uL Nucleated Red Blood Cells 0.1 % Sodium Level 142 136-145 mmol/L Potassium Level 3.7 3.5-5.1 mmol/L Chloride Level 107 98-107 mmol/L Carbon Dioxide Level 19 L 20-31 mmol/L Anion Gap 16 H 5-15 Blood Urea Nitrogen 14 9-23 mg/dL Creatinine 1.14 0.700-1.30 mg/dL Glomerular Filtration Rate Calc 88 >90 mL/min BUN/Creatinine Ratio 12.3 10.0-20.0 Serum Glucose 144 H 74-106 mg/dL Calcium Level 10.6 H 8.7-10.4 mg/dL Total Bilirubin 0.8 0.2-1.0 mg/dL Aspartate Amino Transferase (AST) 19 <34 U/L Alanine Aminotransferase (ALT) 17 7-40 U/L Alkaline Phosphatase 99 46-116 U/L Total Protein 8.2 5.7-8.2 g/dL Albumin 5.3 H 3.2-4.8 g/dL Lipase 33 12-53 U/L Current Medications Medications (Trade) Dose Ordered Sig/Thee Route Start Time Stop Time Status Last Admin Metoclopramide HCl (Reglan Injection) 10 mg ONCE ONCE IV 05/11/25 01:30 05/11/25 01:31 DC 05/11/25 03:18 Sodium Chloride 1,000 ml @ 1,000 mls/hr Q1H ONCE IVB 05/11/25 01:30 05/11/25 02:29 DC 05/11/25 03:13 Diphenhydramine HCl (Benadryl Injection) 25 mg ONCE ONCE IV 05/11/25 01:30 05/11/25 01:31 DC 05/11/25 03:18 Time of 1ST Reevaluation: 01:50 Reevaluation 1ST: Unchanged Patient Education/Counseling: Diagnosis, Treatment, Prognosis Family Education/Counseling: No Family Present SEPSIS Sepsis Screen Date sepsis recognized/suspect: May 11, 2025 Time Sepsis recognized/suspect: 104 Recent Procedure: No On Antibiotic Therapy: No Respiratory Rate >20: No Heart Rate >90: No Temp<36 C (96.8 F) or >38.3 C: No SBP <90 or MAP <65 mmHG: No New Acute Mental Status Change: No Is the patient on CPAP, BIPAP,: No Orders/Vitals/Labs Physician Orders Ct Ab Pel Wo Con-No Oral Or Iv (05/11/25 01:26) Vital Signs Date Time Temp Pulse Resp B/P (MAP) Pulse Ox O2 Delivery O2 Flow Rate FiO2 05/11/25 02:49 98.3 62 20 151/88 (109) 98 98.3 05/11/25 01:13 97.6 62 16 133/73 (93) 98 97.6 Laboratory Tests Test 05/11/25 01:20 White Blood Count 12.0 10^3/uL (4.4-10.8) H Medications Medications Dose Ordered Sig/Thee Route Start Time Stop Time Status Last Admin Dose Admin Diphenhydramine HCl 25 mg ONCE ONCE IV 05/11/25 01:30 05/11/25 01:31 DC 05/11/25 03:18 Metoclopramide HCl 10 mg ONCE ONCE IV 05/11/25 01:30 05/11/25 01:31 DC 05/11/25 03:18 Sodium Chloride 1,000 ml @ 1,000 mls/hr Q1H ONCE IVB 05/11/25 01:30 05/11/25 02:29 DC 05/11/25 03:13 Departure 1 Departure Time of Disposition: 03:30 Impression: Primary Impression: Dehydration Additional Impressions: Epigastric pain Nausea & vomiting Marijuana use Disposition: 01 HOME / SELF CARE / HOMELESS Condition: Stable e-Prescriptions Famotidine (PEPCID TABLET) 20 Mg Tb 1 TAB PO BID PRN, #60 TAB 5 Refills Prov: MIGUEL ANGEL SENA MD 05/11/25 Ondansetron HCl (Ondansetron Hydrochloride) 8 Mg Tab 8 MG PO Q6HP PRN, #60 TAB Prov: MIGUEL ANGEL SENA MD 05/11/25 Discharged With: Self Critical Care Note Critical Care Time?: No Stability Stability form required: No I personally scribed for MIGUEL ANGEL SENA MD ([email or web address]) on 05/11/25 at 01:29. Electronically submitted by Betzy Corcoran ([email or web address]). MIGUEL ANGEL SENA MD May 11, 2025 01:29
[2025-05-11 01:35] LABS: Basophils # (auto) 0 10 ^3/uL (0-0.2); Basophils % (auto) 0.3 % (0.0-2.0); Eosinophils # (auto) 0 10 ^3/uL (0-0.8); Hematocrit 48.3 % (41.0-53.0); Hemoglobin 16.8 g/dL (13.5-17.5); Lymphocytes # (auto) 1.3 10 ^3/uL (0.4-5.4); Lymphocytes % (auto) 10.5 % (10.0-50.0); Mean Corpuscular Hemoglobin 30.6 pg (28.0-32.0); Mean Corpuscular Hgb Conc. 34.7 g/dL (32.0-36.0); Mean Corpuscular Volume 88.3 fL (80.0-100.0); Monocytes # (auto) 0.5 10 ^3/uL (0-1.3); Monocytes % (auto) 3.9 % (0.0-12.0); Neutrophils # (auto) 10.2 10 ^3/uL (1.6-8.6); Neutrophils % (auto) 85.3 % (37.0-80.0); Nucleated Red Blood Cells % 0.1 %; Platelet Count (auto) 243 10^3/uL (140-450); Red Blood Cells 5.48 10^6/uL (4.5-5.90); Red Cell Distribution Width 13.3 % (11.8-14.3)
--- NOTE | 2025-05-11 02:01 | DVH ---
Exam: CT CT AB PEL WO CON-NO ORAL OR IV History: flank pain, vomiting Comparison Study: CT ABD PELVIS WO CONTRAST on DOS: 07/13/22, CT ABD PELVIS WO CONTRAST on DOS: 03/28/22 Technique: Multidetector spiral CT of the abdomen was performed from lung bases to pubic symphysis. I maging was performed without IV contrast. Axial, coronal and sagittal multiplanar reformats were obta ined from the axial data set by the technologist. Radiation Dose : 1. Abdomen/Pelvis: CTDIvol 24.14 mGy, DLP 1292.0 mGy*cm. Findings: Evaluation of solid organs is limited due to lack of intravenous contrast use. Lung Bases: No acute or significant lung base finding. Normal heart size. No pleural or pericardial effusion. Liver: The liver is normal in size. No focal lesions. Gallbladder and Biliary Tree: Unremarkable Spleen: Unremarkable Pancreas: The pancreas is grossly normal in appearance. Adrenal Glands: Unremarkable Kidneys: Kidneys are grossly normal without calculi or hydronephrosis. Bladder: Grossly unremarkable for degree of distention. Bowel: The stomach is grossly normal in appearance. Small bowel and colon are normal in caliber and d istribution. The appendix is normal. Ascites: Absent Lymphadenopathy: No mesenteric, retroperitoneal or periportal lymphadenopathy. Abdominal Wall and Mesentery: Unremarkable. Vasculature: The visualized abdominal aorta is normal in size and caliber. Evaluation of abdominal a nd pelvic vessels is limited due to lack of intravenous contrast. Pelvic Organs: Unremarkable Musculoskeletal: No aggressive focal bony lesions, acute fractures or dislocation. IMPRESSION: 1. No acute abdominal or pelvic findings. Radiation optimization: All CT scans at this facility use at least one of these dose optimization anahi hniques: automated exposure control mA and/or kV adjustment per patient size (includes targeted exam s where dose is matched to clinical indication) or iterative reconstruction.
[2025-05-11 02:05] LABS: Anion Gap 16 (5-15)
[2025-05-11 02:10] LABS: Alanine Aminotransferase 17 U/L (7-40); Alkaline Phosphatase 99 U/L (46-116); Aspartate Aminotransferase 19 U/L (<34); BUN/Creatinine Ratio 12.3 (10.0-20.0); Bilirubin, Total 0.8 mg/dL (0.2-1.0); Blood Urea Nitrogen 14 mg/dL (9-23); Calcium 10.6 mg/dL (8.7-10.4); Carbon Dioxide 19 mmol/L (20-31); Chloride 107 mmol/L (98-107); Potassium 3.7 mmol/L (3.5-5.1); Sodium 142 mmol/L (136-145)
[2025-05-11 02:12] LABS: Albumin 5.3 g/dL (3.2-4.8); Glucose 144 mg/dL (74-106); Total Protein 8.2 g/dL (5.7-8.2)
[2025-05-11 02:49] VITALS: BP 151/88; PULSE 62; RESP 20; TEMP 98.3; O2SAT 98
[2025-05-11 03:04] LABS: Lipase 33 U/L (12-53)
[2025-05-11] MEDS ORDERED: ONDA-180 PO (03:11)
[2025-05-11] MEDS ORDERED: FAMO20TA10 PO (03:11)
[2025-05-11] MEDS: SODIUM CHLORIDE 0.9% 1,000 ML IVB ONE (03:13)
[2025-05-11] MEDS: METOCLOPRAMIDE HCL 5MG/ml INJ 2ml VIAL IV ONE (03:18)
[2025-05-11] MEDS: diphenhdrAMINE HCL 50 MG/1 ML VL IV ONE (03:18)
== END 2025-05-11 04:47 | disposition home or self-care (01) ==
LOC: ER 01:00
DX: R10.13 Epigastric pain (principal); F12.90 Cannabis use, unspecified, uncomplicated; E86.0 Dehydration; F17.210 Nicotine dependence, cigarettes, uncomplicated; Z87.442 Personal history of urinary calculi
CPT/HCPCS: 36415; 74176; 80053; 83690; 85025; 96361; 96374; 96375; 99285; J1200; J2765; J7030

== ENCOUNTER 2025-07-19 16:23 | Inpatient (IN) | payer OTHER ==
[~2025-07-19] VITALS: Ht 190.5 cm; Wt 117.7 kg
[~2025-07-19 16:23] MED LIST changes: +FAMO20TA10 PO; +ONDA-180 PO
[2025-07-19] MEDS: SODIUM CHLORIDE 0.9% 1,000 ML IV ONE (16:45)
[2025-07-19 17:12] LABS: Hematocrit 49.6 % (41.0-53.0); Hemoglobin 17.6 g/dL (13.5-17.5); Mean Corpuscular Hemoglobin 31.4 pg (28.0-32.0); Mean Corpuscular Volume 88.4 fL (80.0-100.0); Nucleated Red Blood Cells % 0.1 %
--- NOTE | 2025-07-19 17:15 | ED.PDOC ---
HPI (NEURO) HPI Comments 34y M who presents to the ED for chief complaint of generalized weakness. Pt states he has been having nausea, vomiting, headache, weakness and dizziness since earlier this AM. Pt states he has also been having chest pains and been out in the sun over the past few days but today has been having exacerbation of his symptoms. Pt in the ED, is alert and oriented x 4 and denies any other symptoms. Pt has BP 146/94, and hear rate of 53 with otherwise stable vitals. Chief Complaint: General Weakness Time Seen by MD: 17:00 Primary Care Provider: DENIES Reviewed Notes: Medications Information Source: Patient Mode of Arrival: Ambulatory Past Medical History PAST MEDICAL HISTORY: Kidney Stones Surgical History: Denies all surgeries Family History Family History: Reviewed,noncontributory to illness Social History Smoker: Cigarettes Alcohol: Denies ETOH Use Drugs: Marijuana Lives In: Home Constitutional: reports: fatigue, weakness; denies: chills, diaphoresis, fever, malaise, sweats, others EENTM: denies: blurred vision, double vision, ear bleeding, ear discharge, ear drainage, ear pain, ear ringing, eye pain, eye redness, hearing loss, mouth pain, mouth swelling, nasal discharge, nose bleeding, nose congestion, nose pain, photophobia, tearing, throat pain, throat swelling, voice changes, others Respiratory: denies: cough, hemoptysis, orthopnea, SOB at rest, shortness of breath, SOB with excertion, stridor, wheezing, others Cardiovascular: reports: chest pain; denies: dizzy spells, diaphoresis, Dyspnea on exertion, edema, irregular heart beat, left arm pain, lightheadedness, palpitations, PND, syncope, others Gastrointestinal: reports: nausea, vomiting; denies: abdomen distended, abdominal pain, blood streaked bowels, constipated, diarrhea, dysphagia, difficulty swallowing, hematemesis, melena, poor appetite, poor fluid intake, rectal bleeding, rectal pain, others Genitourinary: denies: burning, dysuria, flank pain, frequency, hematuria, incontinence, penile discharge, penile sore, pain, testicle pain, testicle swelling, urgency, others Neurological: denies: dizziness, fainting, headache, left sided numbness, left sided weakness, numbness, paresthesia, pre-existing deficit, right sided numbness, right sided weakness, seizure, speech problems, tingling, tremors, weakness, others Musculoskeletal: denies: back pain, gout, joint pain, joint swelling, muscle pain, muscle stiffness, neck pain, others Integumetry: denies: bruises, change in color, change in hair/nails, dryness, laceration, lesions, lumps, rash, wounds, others Allergic/Immunocompromised: denies: Difficulty Healing, Frequent Infections, Hives, Itching, others Hematologic/Lymphatic: denies: anemia, blood clots, easy bleeding, easy br uising, swollen glands, others Endocrine: denies: excessive hunger, excessive sweating, excessive thirst, excessive urination, flushing, intolerance to cold, intolerance to heat, unexplained weight gain, unexplained weight loss, others Psychiatric: denies: anxiety, bipolar disorder, depression, hopeless, panic disorder, schizophrenia, sleepless, suicidal, others All Other Systems: Reviewed and Negative Physical Exam General Appearance: No Apparent Distress, Normal HEENT: Normal ENT Inspection, Pharynx Normal, TMs Normal Neck: Full Range of Motion, Non-Tender, Normal, Normal Inspection Respiratory: Chest Non-Tender, Lungs Clear, No Accessory Muscle Use, No Respiratory Distress, Normal Breath Sounds Cardiovascular: No Edema, No JVD, No Murmur, No Gallop, Normal Peripheral Pulses, Regular Rate/Rhythm Breast Exam: Deferred Gastrointestinal: No Organomegaly, Non Tender, No Pulsatile Mass, Normal Bowel Sounds, Soft Genitalia: Deferred Pelvic: Deferred Rectal: Deferred Extremities: No calf tenderness, Normal capillary refill, Normal inspection, Normal range of motion, Non-tender, No pedal edema Musculoskeletal : Apperance: Normal Neurologic: Alert, e business specialist II-XII nml as Tested, No Motor Deficits, Normal Affect, Normal Mood, No Sensory Deficits Cerebellar Function: Normal Reflexes: Normal Skin: Dry, Normal Color, Warm Lymphatic: No Adenopathy Was a procedure done? Was a procedure done?: No Differential Diagnosis (SZ) General Weakness: Anemia, Dehydration, Dysrhythmia, Electrolyte imbalance, Hypoglycemia, Hypotension, Hypovolemia, TIA, Vertigo: central, Vertigo: peripheral, Vestibular neuronitis, Other (heat stroke, myocarditis, perica rditis) X-Ray, Labs, Meds, VS Vital Signs Date Time Temp Pulse Resp B/P (MAP) Pulse Ox O2 Delivery O2 Flow Rate FiO2 07/19/25 20:56 58 16 141/91 07/19/25 20:41 98.6 58 16 141/91 (108) 97 98.6 07/19/25 16:24 97.6 53 18 146/94 99 97.6 Lab Test 07/19/25 17:54 07/19/25 17:04 Range/Units Troponin I High Sensitivity < 3 L < 3 L </=54 ng/L White Blood Count 11.8 H 4.4-10.8 10^3/uL Red Blood Count 5.61 4.5-5.90 10^6/uL Hemoglobin 17.6 H 13.5-17.5 g/dL Hematocrit 49.6 41.0-53.0 % Mean Corpuscular Volume 88.4 80.0-100.0 fL Mean Corpuscular Hemoglobin 31.4 28.0-32.0 pg Mean Corpuscular Hemoglobin Concent 35.5 32.0-36.0 g/dL Red Cell Distribution Width 13.5 11.8-14.3 % Platelet Count 278 140-450 10^3/uL Mean Platelet Volume 8.6 6.9-10.8 fL Neutrophils (%) (Auto) 85.2 H 37.0-80.0 % Lymphocytes (%) (Auto) 9.5 L 10.0-50.0 % Monocytes (%) (Auto) 4.8 0.0-12.0 % Eosinophils (%) (Auto) 0.0 0.0-7.0 % Basophils (%) (Auto) 0.5 0.0-2.0 % Neutrophils # (Auto) 10.0 H 1.6-8.6 10 ^3/uL Lymphocytes # (Auto) 1.1 0.4-5.4 10 ^3/uL Monocytes # (Auto) 0.6 0-1.3 10 ^3/uL Eosinophils # (Auto) 0 0-0.8 10 ^3/uL Basophils # (Auto) 0.1 0-0.2 10 ^3/uL Nucleated Red Blood Cells 0.1 % Sodium Level 146 H 136-145 mmol/L Potassium Level 4.2 3.5-5.1 mmol/L Chloride Level 112 H 98-107 mmol/L Carbon Dioxide Level 21 20-31 mmol/L Anion Gap 13 5-15 Blood Urea Nitrogen 12 9-23 mg/dL Creatinine 1.19 0.700-1.30 mg/dL Glomerular Filtration Rate Calc 83 >90 mL/min BUN/Creatinine Ratio 10.1 10.0-20.0 Serum Glucose 151 H 74-106 mg/dL Calcium Level 10.2 8.7-10.4 mg/dL Lipase 24 12-53 U/L Current Medications Medications (Trade) Dose Ordered Sig/Thee Route Start Time Stop Time Status Last Admin Sodium Chloride 1,000 ml @ 1,000 mls/hr Q1H ONCE IV 07/19/25 16:45 07/19/25 17:44 DC 07/19/25 16:45 Ondansetron HCl (Zofran) 4 mg O ONCE IV 07/19/25 16:45 07/19/25 16:46 DC 07/19/25 20:54 Morphine Sulfate 4 mg ONCE ONCE IV 07/19/25 21:00 07/19/25 21:01 DC 07/19/25 20:56 X-Ray, Labs, Meds, VS Comment 34-year-old male with a history of polycythemia vera here today with the above complaints. Vital signs stable, afebrile. Physical exam without any acute findings. Labs overall reassuring with evidence of negative troponin x2. No significant electrolyte abnormalities. No significant leukocytosis. Positive for polycythemia which is known for him. No significant renal dysfunction. Patient's EKG however with evidence of T-wave inversions but no evidence of STEMI. Plan made to admit the patient for further cardiac risk stratification and evaluation of his EKG abnormalities. Patient in agreement with the plan. Time of 1ST Reevaluation: 18:00 Reevaluation 1ST: Unchanged Patient Education/Counseling: Diagnosis, Treatment Family Education/Counseling: No Family Present Departure 1 Departure Time of Disposition: 20:38 Impression: Primary Impression: Abnormal EKG Additional Impression: Polycythemia Disposition: 09 ADMITTED INPATIENT Admit to: Tele Condition: Guarded Critical Care Note Critical Care Time?: Yes (35 min-critical care time only) Stability Stability form required: No Heart Score Heart Score: Heart Score Response (Comments) Value History N/A 0 EKG N/A 0 Age N/A 0 Risk Factors N/A 0 Troponin N/A 0 Total 0 I personally scribed for ALEYDA GRIER MD ([email or web address]) on 07/19/25 at 17:15. Electronically submitted by Osmin Cochran ([facility]). I personally scribed for ALEYDA GRIER MD ([email or web address]) on 07/19/25 at 17:19. Electronically submitted by Osmin Cochran ([facility]). ALEYDA GRIER MD Jul 19, 2025 17:15
[2025-07-19 17:17] LABS: Potassium 4.2 mmol/L (3.5-5.1)
[2025-07-19 17:18] LABS: Anion Gap 13 (5-15); Calcium 10.2 mg/dL (8.7-10.4); Carbon Dioxide 21 mmol/L (20-31)
[2025-07-19 17:23] LABS: BUN/Creatinine Ratio 10.1 (10.0-20.0); Blood Urea Nitrogen 12 mg/dL (9-23); Chloride 112 mmol/L (98-107); Sodium 146 mmol/L (136-145)
[2025-07-19 17:27] LABS: Glucose 151 mg/dL (74-106)
[2025-07-19] MEDS ORDERED: MORPHINE SULFATE 4 MG/ML SYR/VIAL IV ONE (19:45)
[2025-07-19] MEDS: ONDANSETRON HCL 4 MG/2 ML VIAL IV ONE (20:54)
[2025-07-19] MEDS: MORPHINE SULFATE 4 MG/ML SYR/VIAL IV ONE (20:56)
--- NOTE | 2025-07-19 21:27 | DVHHP2 ---
Admitting Diagnosis: Fatigue, headache, nausea History of Present Illness 34 y/o male patient presents with c/o fatigue, headache, and nausea. While in the emergency department the patient was evaluated by the provider, As per provider: Labs, vital signs, and imagining monitored. Patient will be admitted for further evaluation and treatment. I discussed admission with the patient/family and is in agreement to treatment plan. Patient Family History: Patient reports no known family medical history. Allergies: Coded Allergies: NO KNOWN ALLERGIES (Unverified , 01/06/15) Home Meds Active Scripts Doxycycline (Monohydrate) (Doxycycline) 100 Mg Cap, 100 MG PO BID for 7 Days, #14 CAP Prov:ANGELIQUE RAMOS RECORDS MANAGEMENT MANAGER 07/20/25 Ondansetron Odt 4MG Tab (ZOFRAN PO) 4 Mg Tb, 4 MG PO Q8HP PRN for 7 Days, #21 TAB ODT TAB-DISSOLVE IN MOUTH, THEN SWALLOW Prov:ANGELIQUE RAMOS NP 07/20/25 Famotidine (PEPCID TABLET) 20 Mg Tb, 1 TAB PO BID PRN, #60 TAB 5 Refills Prov:MIGUEL ANGEL SENA MD 05/11/25 Ondansetron HCl (Ondansetron Hydrochloride) 8 Mg Tab, 8 MG PO Q6HP PRN, #60 TAB Prov:MIGUEL ANGEL SENA MD 05/11/25 Ibuprofen Micronized (Ibuprofen) 600 Mg Tab, 600 MG PO Q6HPRN PRN for 7 Days, #28 TAB 0 Refills Prov:ARLETH BARTH MD 03/15/22 Ondansetron (Zofran) 4 Mg Tab, 1 TAB PO Q6HR, #20 TAB Prov:ELLEN YBARRA MD 01/26/22 Current Medications Current Medications Medications (Trade) Dose Ordered Sig/Thee Route PRN Reason Start Time Stop Time Status Last Admin Sodium Chloride 1,000 ml @ 120 mls/hr Q8H20M IV 07/19/25 21:30 07/20/25 07:49 Acetaminophen/ Hydrocodone Bitart ([place] 5/325MG Tab) 1 tab Q4HP PRN PO MODERATE PAIN (4-6 PAIN SCALE) 07/19/25 21:30 07/20/25 13:24 Temazepam (Restoril) 15 mg QHSP PRN PO FOR INSOMNIA 07/19/25 21:30 Ondansetron HCl (Zofran) 4 mg Q4HP PRN IV NAUSEA / VOMITING 07/19/25 21:30 07/20/25 13:23 Acetaminophen (Tylenol Tablet) 650 mg Q6HP PRN PO PAIN SCALE 1-3 OR TEMP>100.4 07/19/25 21:30 Morphine Sulfate 2 mg Q4HPRN PRN IV SEVERE PAIN (7-10 PAIN SCALE) 07/19/25 21:30 07/20/25 16:55 Nitroglycerin (Ntrostat Sublingual) 0.4 mg Q5MINP PRN SL FOR CHEST PAIN 07/19/25 21:30 Morphine Sulfate 2 mg Q30M PRN IV FOR CHEST PAIN 07/19/25 21:30 Pantoprazole Sodium (Protonix) 40 mg DAILY IV 07/20/25 10:00 07/20/25 09:22 Guaifenesin/ Dextromethorphan (Robitussin-Dm Liquid) 10 ml Q6HP PRN PO FOR COUGH 07/19/25 21:30 Review of Systems Constitutional: denies chills, denies fever, denies malaise Eyes: denies eye pain, denies vision change ENT: denies ear pain, denies headache, denies nasal congestion, denies painful swallowing, denies voice change Cardiovascular: denies chest pain, denies edema, denies orthopnea, denies palpitations, denies paroxysmal nocturnal dyspnea Respiratory: denies cough, denies shortness of breath Gastrointestinal: denies constipation, denies diarrhea, denies nausea, denies vomiting Genitourinary: denies dysuria, denies frequent urination, denies urethral discharge Musculoskeletal: denies back pain, denies joint pain, denies muscle pain Skin: denies bruising, denies itching, denies rash Neurological: denies focal weakness, denies headache, denies sensory changes Psychiatric: denies anxiety, denies depression Endocrine: denies polydipsia, denies polyuria Hematologic/Lymphatic: denies easy bleeding, denies easy bruising, denies enlarged lymph nodes Allergic/Immunologic: denies allergy, denies hives Vital Signs Vital Signs Date Time Temp Pulse Resp B/P (MAP) Pulse Ox O2 Delivery O2 Flow Rate FiO2 07/20/25 18:43 Room Air* 0 21 07/20/25 17:00 98.2 50 16 117/89 (86) 96 98.2 Physical Exam General Appearance: alert, no distress HEENT: EOMI, PERRLA, normal external inspect of ears, no icterus, no nasal drainage Neck: no carotid bruit, no jugular venous distention (JVD), no lymphadenopathy Chest: normal thorax Respiratory: clear to auscultation, normal air movement Cardiovascular: regular rate and rhythm, no diastolic murmur, no jugular venous distention (JVD), no rub, no systolic murmur Abdominal: soft, no hepatomegaly, no mass, no splenomegaly, no tenderness Genitourinary: grossly normal external Musculoskeletal: no joint tenderness, no swelling Extremities: normal pulses, no calf tenderness, no clubbing, no cyanosis, no edema Skin: no bruising, no jaundice, no rash Neurological: alert, No focal deficit SEPSIS Sepsis Screen Date sepsis recognized/suspect: Jul 19, 2025 Time Sepsis recognized/suspect: 1625 Recent Procedure: No On Antibiotic Therapy: No Respiratory Rate >20: No Heart Rate >90: No Temp<36 C (96.8 F) or >38.3 C: No SBP <90 or MAP <65 mmHG: No New Acute Mental Status Change: No Is the patient on CPAP, BIPAP,: No Physician Orders Electrocardigram (07/19/25 19:32) Admit (07/19/25 21:22) Code Status (07/19/25 21:22) Sodium Chloride 0.9% (07/19/25 21:30) Hydrocodone-Acet 5/325mg Tab ([place] (07/19/25 21:30) Temazepam (Restoril) (07/19/25 21:30) Ondansetron Hcl (Zofran) (07/19/25 21:30) Cardiac Diet-2gna,Lofat,Lochol (07/20/25 Breakfast) Condition: Stable (07/19/25 21:22) Acetaminophen Tablet (Tylenol Tablet) (07/19/25 21:30) Morphine Sulfate Injection (07/19/25 21:30) Sequential Compression Device (07/19/25 ) Nitroglycerin Sublingual (Ntrostat Subli (07/19/25 21:30) Morphine Sulfate Injection (07/19/25 21:30) Stat Ekg For Chest Pain (07/19/25 21:22) Notify Md Of Changes From Base (07/19/25 21:22) Investigative Agent For 24 Hours (07/19/25 21:22) Emergency Dysrhythmia Protocol (07/19/25 21:22) Rhythm Strips Once Every Shift (07/19/25 21:22) Oxygen By Nasal Cannula (07/19/25 21:22) Pantoprazole (Protonix) (07/20/25 10:00) Chest Portable (07/19/25 21:24) Guaifenesin-Dextromet Liquid (Robitussin (07/19/25 21:30) Dme: Commode (07/20/25 11:14) Drug Screen (07/20/25 12:17) * Gi Dvh Sorter Operator (07/20/25 17:44) Vital Signs Date Time Temp Pulse Resp B/P (MAP) Pulse Ox O2 Delivery O2 Flow Rate FiO2 07/20/25 18:43 Room Air* 0 21 07/20/25 17:00 98.2 50 16 117/89 (98) 96 98.2 07/20/25 16:55 50 16 117/58 07/20/25 12:19 98.1 52 16 113/66 (82) 97 98.1 07/20/25 09:53 64 16 109/52 07/20/25 09:23 50 16 116/68 07/20/25 08:42 98.9 50 16 116/68 (84) 95 98.9 07/20/25 08:03 98.9 50 16 116/68 (84) 95 98.9 07/20/25 05:08 98.1 60 13 144/73 (96) 98 98.1 07/20/25 05:08 60 13 98 Room Air* 0 21 07/20/25 02:51 53 16 148/82 07/20/25 02:46 98.6 53 16 148/82 (104) 98 98.6 07/19/25 20:56 58 16 141/91 07/19/25 20:41 98.6 58 16 141/91 (108) 97 98.6 07/19/25 16:24 97.6 53 18 146/94 99 97.6 Laboratory Tests Test 07/19/25 17:04 07/20/25 03:38 White Blood Count 11.8 10^3/uL (4.4-10.8) H 10.9 10^3/uL (4.4-10.8) H Medications Medications Dose Ordered Sig/Thee Route Start Time Stop Time Status Last Admin Dose Admin Pantoprazole Sodium 40 mg DAILY IV 07/20/25 10:00 07/20/25 09:22 Results Labs Test 07/20/25 03:38 07/19/25 17:54 07/19/25 17:04 07/19/25 09:58 Range/Units White Blood Count 10.9 H 4.4-10.8 10^3/uL Red Blood Count 5.34 4.5-5.90 10^6/uL Hemoglobin 16.9 13.5-17.5 g/dL Hematocrit 47.6 41.0-53.0 % Mean Corpuscular Volume 89.0 80.0-100.0 fL Mean Corpuscular Hemoglobin 31.6 28.0-32.0 pg Mean Corpuscular Hemoglobin Concent 35.5 32.0-36.0 g/dL Red Cell Distribution Width 13.6 11.8-14.3 % Platelet Count 261 140-450 10^3/uL Mean Platelet Volume 8.4 6.9-10.8 fL Neutrophils (%) (Auto) 81.5 H 37.0-80.0 % Lymphocytes (%) (Auto) 11.5 10.0-50.0 % Monocytes (%) (Auto) 6.9 0.0-12.0 % Eosinophils (%) (Auto) 0.0 0.0-7.0 % Basophils (%) (Auto) 0.1 0.0-2.0 % Neutrophils # (Auto) 8.9 H 1.6-8.6 10 ^3/uL Lymphocytes # (Auto) 1.3 0.4-5.4 10 ^3/uL Monocytes # (Auto) 0.8 0-1.3 10 ^3/uL Eosinophils # (Auto) 0 0-0.8 10 ^3/uL Basophils # (Auto) 0 0-0.2 10 ^3/uL Nucleated Red Blood Cells 0.4 % Sodium Level 146 H 136-145 mmol/L Potassium Level 4.1 3.5-5.1 mmol/L Chloride Level 109 H 98-107 mmol/L Carbon Dioxide Level 27 20-31 mmol/L Anion Gap 10 5-15 Blood Urea Nitrogen 13 9-23 mg/dL Creatinine 1.27 0.700-1.30 mg/dL Glomerular Filtration Rate Calc 77 >90 mL/min BUN/Creatinine Ratio 10.2 10.0-20.0 Serum Glucose 126 H 74-106 mg/dL Calcium Level 10.1 8.7-10.4 mg/dL Total Bilirubin 0.5 0.2-1.0 mg/dL Aspartate Amino Transferase (AST) 18 13-40 U/L Alanine Aminotransferase (ALT) 17 7-40 U/L Alkaline Phosphatase 102 46-116 U/L Total Protein 8.1 5.7-8.2 g/dL Albumin 5.5 H 3.2-4.8 g/dL Troponin I High Sensitivity < 3 L </=54 ng/L Lipase 24 12-53 U/L Urine Color Yellow Yellow Urine Clarity Clear Clear Urine pH 6.5 5.0-9.0 Urine Specific [place] 1.034 1.001-1.035 Urine Protein 1+ H Negative Urine Ketones 1+ H Negative Urine Blood Negative Negative /uL Urine Nitrite Negative Negative Urine Bilirubin Negative Negative Urine Urobilinogen Normal Negative mg/dL Urine Leukocyte Esterase Negative Negative /uL Urine RBC 2 0 - 3 /hpf Urine Microscopic WBC 2 0-3 /HPF Urine Squamous Epithelial Cells Few <5 /hpf Urine Bacteria None seen None Seen /hpf Urine Mucus Few None Seen Urine Glucose Normal Normal mg/dL Test 07/19/25 05:16 Range/Units Influenza Type A Antigen Negative Negative Influenza Type B Antigen Negative Negative SARS-CoV-2 Antigen (Rapid) Negative NEGATIVE Plan 1. Upper viral syndrome Monitor, supportive measures, Med-Neb tx, IV fluids, PRN cough medicine 2. Nausea Monitor, PRN nausea meds 3. Obesity Monitor, cardiac diet Plan discussed with: Patient, Other ANGELIQUE RAMOS NP Jul 19, 2025 21:27
[2025-07-19] MEDS ORDERED: ACETAMINOPHEN 325 MG TAB PO PRN (21:30)
[2025-07-19] MEDS ORDERED: NITROGLYCERIN 0.4 MG SL TAB SL PRN (21:30)
[2025-07-19] MEDS ORDERED: guaiFENesin-DM 100/10mg/5ml SYR PO PRN (21:30)
[2025-07-19] MEDS ORDERED: TEMAZEPAM 15 MG CAP PO PRN (21:30)
[2025-07-19] MEDS ORDERED: MORPHINE SULFATE INJ 2 MG/ml SYRG IV PRN (21:30)
--- NOTE | 2025-07-19 22:31 | DVH ---
EXAMINATION: XY CHEST PORTABLE CLINICAL HISTORY: gen weakness COMPARISON: None FINDINGS: Blunting of the left costophrenic angle with mild left hemidiaphragm elevation. No lobar consolidatio n is identified. No definite pneumothorax. The cardiomediastinal silhouette appears within normal li mits given technique. IMPRESSION: Possible small left pleural effusion and/or atelectasis/scarring in the lung base.
[2025-07-20] VITALS (7 sets, daily range): BP systolic 113–117; BP diastolic 64–89; PULSE 49–60; RESP 13–18; TEMP 98.1–98.9; O2SAT 95–98
[2025-07-20] MEDS: ONDANSETRON HCL 4 MG/2 ML VIAL IV ONE (00:20)
[2025-07-20] MEDS: SODIUM CHLORIDE 0.9% 1,000 ML IV SCH (00:22)
[2025-07-20] MEDS: ONDANSETRON HCL 4 MG/2 ML VIAL IV PRN (02:48)
[2025-07-20] MEDS: MORPHINE SULFATE INJ 2 MG/ml SYRG IV PRN (02:51)
[2025-07-20 04:42] LABS: Hematocrit 47.6 % (41.0-53.0); Hemoglobin 16.9 g/dL (13.5-17.5); Mean Corpuscular Hemoglobin 31.6 pg (28.0-32.0); Mean Corpuscular Volume 89.0 fL (80.0-100.0); Nucleated Red Blood Cells % 0.4 %
[2025-07-20 05:00] LABS: Alanine Aminotransferase 17 U/L (7-40); Alkaline Phosphatase 102 U/L (46-116); Anion Gap 10 (5-15); BUN/Creatinine Ratio 10.2 (10.0-20.0); Blood Urea Nitrogen 13 mg/dL (9-23); Calcium 10.1 mg/dL (8.7-10.4); Carbon Dioxide 27 mmol/L (20-31); Potassium 4.1 mmol/L (3.5-5.1); Total Protein 8.1 g/dL (5.7-8.2)
[2025-07-20 05:01] LABS: Bilirubin, Total 0.5 mg/dL (0.2-1.0)
[2025-07-20 05:23] LABS: Albumin 5.5 g/dL (3.2-4.8); Chloride 109 mmol/L (98-107); Glucose 126 mg/dL (74-106); Sodium 146 mmol/L (136-145)
[2025-07-20 06:11] LABS: COVID19 ANTIGEN SOFIA FIA NEGATIVE (NEGATIVE)
[2025-07-20] MEDS: HYDROcodone-ACET 5/325MG TAB PO PRN (07:51)
[2025-07-20] MEDS: PANTOPRAZOLE 40 MG/10 ML VIAL INJ IV SCH (09:22)
--- NOTE | 2025-07-20 11:13 | DVHDS2 ---
Discharge Summary Date of Admission Jul 19, 2025 at 21:22 Labs/Diagnostic Data: Laboratory Results Test 07/20/25 03:38 07/19/25 17:54 07/19/25 17:04 07/19/25 05:16 White Blood Count 10.9 10^3/uL (4.4-10.8) Red Blood Count 5.34 10^6/uL (4.5-5.90) Hemoglobin 16.9 g/dL (13.5-17.5) Hematocrit 47.6 % (41.0-53.0) Mean Corpuscular Volume 89.0 fL (80.0-100.0) Mean Corpuscular Hemoglobin 31.6 pg (28.0-32.0) Mean Corpuscular Hemoglobin Concent 35.5 g/dL (32.0-36.0) Red Cell Distribution Width 13.6 % (11.8-14.3) Platelet Count 261 10^3/uL (140-450) Mean Platelet Volume 8.4 fL (6.9-10.8) Neutrophils (%) (Auto) 81.5 % (37.0-80.0) Lymphocytes (%) (Auto) 11.5 % (10.0-50.0) Monocytes (%) (Auto) 6.9 % (0.0-12.0) Eosinophils (%) (Auto) 0.0 % (0.0-7.0) Basophils (%) (Auto) 0.1 % (0.0-2.0) Neutrophils # (Auto) 8.9 10 ^3/uL (1.6-8.6) Lymphocytes # (Auto) 1.3 10 ^3/uL (0.4-5.4) Monocytes # (Auto) 0.8 10 ^3/uL (0-1.3) Eosinophils # (Auto) 0 10 ^3/uL (0-0.8) Basophils # (Auto) 0 10 ^3/uL (0-0.2) Nucleated Red Blood Cells 0.4 % Sodium Level 146 mmol/L (136-145) Potassium Level 4.1 mmol/L (3.5-5.1) Chloride Level 109 mmol/L (98-107) Carbon Dioxide Level 27 mmol/L (20-31) Anion Gap 10 (5-15) Blood Urea Nitrogen 13 mg/dL (9-23) Creatinine 1.27 mg/dL (0.700-1.30) Glomerular Filtration Rate Calc 77 mL/min (>90) BUN/Creatinine Ratio 10.2 (10.0-20.0) Serum Glucose 126 mg/dL (74-106) Calcium Level 10.1 mg/dL (8.7-10.4) Total Bilirubin 0.5 mg/dL (0.2-1.0) Aspartate Amino Transferase (AST) 18 U/L (13-40) Alanine Aminotransferase (ALT) 17 U/L (7-40) Alkaline Phosphatase 102 U/L (46-116) Total Protein 8.1 g/dL (5.7-8.2) Albumin 5.5 g/dL (3.2-4.8) Troponin I High Sensitivity < 3 ng/L (</=54) Lipase 24 U/L (12-53) Influenza Type A Antigen Negative (Negative) Influenza Type B Antigen Negative (Negative) SARS-CoV-2 Antigen (Rapid) Negative (NEGATIVE) Other Laboratory Tests 07/20/25 03:38 Discharge Instruct/Medications Scheduled Doxycycline (Monohydrate) (Doxycycline), 100 MG PO BID Ondansetron (Zofran), 1 TAB PO Q6HR Scheduled PRN Famotidine (Pepcid Tablet), 1 TAB PO BID PRN Ibuprofen Micronized (Ibuprofen), 600 MG PO Q6HPRN PRN Ondansetron HCl (Ondansetron Hydrochloride), 8 MG PO Q6HP PRN Ondansetron Odt 4MG Tab (Zofran Po), 4 MG PO Q8HP PRN Discharge Statement: "Patient was advised to return to the ER or call 911 if any headaches, dizziness, shortness of breath, chest pain, abdominal pain, bleeding, fevers, or worsening of medical condition. Patient was counseled about treatment plan, medications, possible side effects, patientverbalized understanding. All questions were answered to the best of my ability. This discharge took greater then 30 minutes in planning, reviewing documentation, counseling the patient, and discussing with other team members." ASSESSMENT ASSESSMENT Assessment ANGELIQUE RAMOS NP Jul 20, 2025 11:12
[2025-07-20] MEDS ORDERED: DOXY100C79 PO (11:14)
[2025-07-20] MEDS ORDERED: ZOFR4T PO (11:14)
[2025-07-20 12:05] LABS: Urine Protein, UAD 1+ (Negative)
--- NOTE | 2025-07-20 12:21 | DVHPN2 ---
Progress Note - Dictate Date Seen: Jul 20, 2025 Medical Necessity Reason Pt with a Central, PICC or Fol: No vital signs Vital Sign Date Time Temp Pulse Resp B/P (MAP) Pulse Ox O2 Delivery O2 Flow Rate FiO2 07/20/25 12:19 98.1 52 16 113/66 (82) 97 98.1 07/20/25 05:08 Room Air* 0 21 medications Current Medications Medications Dose Ordered Sig/Thee Route Start Time Stop Time Status Last Admin Dose Admin Sodium Chloride 1,000 ml @ 120 mls/hr Q8H20M IV 07/19/25 21:30 07/20/25 07:49 120 MLS/HR Acetaminophen/ Hydrocodone Bitart 1 tab Q4HP PRN PO 07/19/25 21:30 07/20/25 07:51 1 TAB Temazepam 15 mg QHSP PRN PO 07/19/25 21:30 Ondansetron HCl 4 mg Q4HP PRN IV 07/19/25 21:30 07/20/25 07:50 4 MG Acetaminophen 650 mg Q6HP PRN PO 07/19/25 21:30 Morphine Sulfate 2 mg Q4HPRN PRN IV 07/19/25 21:30 07/20/25 09:23 2 MG Nitroglycerin 0.4 mg Q5MINP PRN SL 07/19/25 21:30 Morphine Sulfate 2 mg Q30M PRN IV 07/19/25 21:30 Pantoprazole Sodium 40 mg DAILY IV 07/20/25 10:00 07/20/25 09:22 40 MG Guaifenesin/ Dextromethorphan 10 ml Q6HP PRN PO 07/19/25 21:30 objective General Appearance: alert, no distress HEENT: EOMI, PERRLA, normal external inspect of ears, no icterus, no nasal drainage Neck: no carotid bruit, no jugular venous distention (JVD), no lymphadenopathy Chest: normal thorax Respiratory: clear to auscultation, normal air movement Cardiovascular: regular rate and rhythm, no diastolic murmur, no jugular venous distention (JVD), no rub, no systolic murmur Abdominal: soft, no hepatomegaly, no mass, no splenomegaly, no tenderness Genitourinary: grossly normal external Musculoskeletal: no joint tenderness, no swelling Extremities: normal pulses, no calf tenderness, no clubbing, no cyanosis, no edema Skin: no bruising, no jaundice, no rash Neurological: alert, No focal deficit laboratory and microbiology Laboratory Tests 07/20/25 03:38 Test 07/20/25 03:38 Range/Units Serum Glucose 126 H 74-106 mg/dL Problem List 1. Upper viral syndrome Monitor, supportive measures, Med-Neb tx, IV fluids, PRN cough medicine 2. Nausea Monitor, PRN nausea meds 3. Obesity Monitor, cardiac diet Assessment/Plan Subjective: Patient is awake and alert. Objective: Patient was admitted for generalized malaise. Influenza and COVID swab were negative. Lipase levels are 24. Chest x-ray has no acute findings. Troponin levels also negative. Patient states he has not been able to hold down any food. He does admit to using cannabis. Patient may have cannabis hyperemesis syndrome. Plan: Continue IV fluids. Continue antinausea medications. Monitor on EKG. Replace electrolytes as needed. Plan discussed with: Patient, Other ANGELIQUE RAMOS NP Jul 20, 2025 12:21
[2025-07-20 22:05] LABS: Amphetamine Screen, Urine Neg (NEGATIVE); Barbiturate Scree,Urine Neg (NEGATIVE); Benzodiazephine Screen, Urine Neg (NEGATIVE); Cannabinoid Screen, Urine Pos (NEGATIVE); Cocaine Screen, Urine Neg (NEGATIVE); Opiate Scree,Urine Pos (NEGATIVE); Phencyclidine Screen, Urine Neg (NEGATIVE)
[2025-07-21 01:00] VITALS: BP 107/67; PULSE 72; RESP 17; TEMP 98; O2SAT 98
[2025-07-21 05:00] VITALS: BP 107/64; PULSE 54; RESP 17; TEMP 98.1; O2SAT 98
[2025-07-21 08:00] VITALS: PULSE 56
[2025-07-21 08:31] VITALS: BP 106/60; PULSE 61; RESP 18; TEMP 98.7; O2SAT 98
[2025-07-21 12:31] VITALS: BP 118/70; PULSE 53; RESP 18; TEMP 97.3; O2SAT 98
--- NOTE | 2025-07-21 12:33 | DVHPN2 ---
Progress Note - Dictate Medical Necessity Reason Pt with a Central, PICC or Fol: No vital signs Vital Sign Date Time Temp Pulse Resp B/P (MAP) Pulse Ox O2 Delivery O2 Flow Rate FiO2 07/21/25 12:31 97.3 53 18 118/70 (86) 98 97.3 07/21/25 08:00 Room Air* 0 21 Total Intake and Output 07/20/25 07/20/25 07/21/25 15:00 23:00 07:00 Intake Total 1750 ml Output Total 200 ml 0 ml Balance -200 ml 0 ml 1750 ml medications Current Medications Medications Dose Ordered Sig/Thee Route Start Time Stop Time Status Last Admin Dose Admin Sodium Chloride 1,000 ml @ 120 mls/hr Q8H20M IV 07/19/25 21:30 07/21/25 06:24 120 MLS/HR Acetaminophen/ Hydrocodone Bitart 1 tab Q4HP PRN PO 07/19/25 21:30 07/20/25 13:24 1 TAB Temazepam 15 mg QHSP PRN PO 07/19/25 21:30 Ondansetron HCl 4 mg Q4HP PRN IV 07/19/25 21:30 07/20/25 13:23 4 MG Acetaminophen 650 mg Q6HP PRN PO 07/19/25 21:30 Morphine Sulfate 2 mg Q4HPRN PRN IV 07/19/25 21:30 07/20/25 16:55 2 MG Nitroglycerin 0.4 mg Q5MINP PRN SL 07/19/25 21:30 Morphine Sulfate 2 mg Q30M PRN IV 07/19/25 21:30 Pantoprazole Sodium 40 mg DAILY IV 07/20/25 10:00 07/21/25 09:09 40 MG Guaifenesin/ Dextromethorphan 10 ml Q6HP PRN PO 07/19/25 21:30 objective General Appearance: alert, no distress HEENT: EOMI, PERRLA, normal external inspect of ears, no icterus, no nasal drainage Neck: no carotid bruit, no jugular venous distention (JVD), no lymphadenopathy Chest: normal thorax Respiratory: clear to auscultation, normal air movement Cardiovascular: regular rate and rhythm, no diastolic murmur, no jugular venous distention (JVD), no rub, no systolic murmur Abdominal: soft, no hepatomegaly, no mass, no splenomegaly, no tenderness Genitourinary: grossly normal external Musculoskeletal: no joint tenderness, no swelling Extremities: normal pulses, no calf tenderness, no clubbing, no cyanosis, no edema Skin: no bruising, no jaundice, no rash Neurological: alert, No focal deficit laboratory and microbiology Laboratory Tests 07/20/25 03:38 Test 07/20/25 03:38 Range/Units Serum Glucose 126 H 74-106 mg/dL Problem List 1. Upper viral syndrome Monitor, supportive measures, Med-Neb tx, IV fluids, PRN cough medicine 2. Nausea Monitor, PRN nausea meds 3. Obesity Monitor, cardiac diet Assessment/Plan Subjective: Patient is awake and alert. Objective: Patient was admitted for generalized malaise. Influenza and COVID swab were negative. Lipase levels are 24. Chest x-ray has no acute findings. Troponin levels also negative. Patient states he has not been able to hold down any food. He does admit to using cannabis. Patient may have cannabis hyperemesis syndrome. Plan: Continue IV fluids. Continue antinausea medications. Monitor on EKG. Replace electrolytes as needed. ANGELIQUE RAMOS NP Jul 21, 2025 12:33
--- NOTE | 2025-07-21 13:46 | DVHINCON2 ---
GI Consult Consult Note GI consult note Date of Consultation: 07/21/2025 Chief Complaint: Nausea and vomiting Referring Physician: RACHEL GILLIS H&P: 34-year-old male presented to ER with complains of generalized weakness. Patient also had nausea and vomiting, which has improved at this time. Patient is able to tolerate regular diet. Was not able to even have any liquids yesterday. Also admits to having headache and dizziness. No hematemesis. No melena or red blood in stool. Patient lives in his RV and it has been very hot the last few days Past Medical History: Kidney stones Past Surgical History: Denies Social History: Smoker: Cigarettes Alcohol: Denies ETOH Use Drugs: Marijuana Lives In: Home Family History: Noncontributory Review of Systems: Constitutional: no fever, chill, weight loss HEENT: no eye pain, no hearing loss, no oral lesion, no scleral icterus Heart: no chest pain, no chest pressure Lung: no cough, no dyspnea with exertion Abdomen: see HPI Physical exam: General: NAD, AAOX3 Chest: lung reyes clear to auscultation Heart: RRR, no murmur Abdomen: non-distended, no tenderness to palpation, +BS Labs: Labs Test 07/20/25 21:40 07/20/25 03:38 07/19/25 17:54 07/19/25 17:04 Range/Units Urine Opiates Screen Pos NEGATIVE Urine Fentanyl Screen Neg NEGATIVE Urine Barbiturates Screen Neg NEGATIVE Urine Phencyclidine Screen Neg NEGATIVE Urine Amphetamines Screen Neg NEGATIVE Urine Benzodiazepines Screen Neg NEGATIVE Urine Cocaine Screen Neg NEGATIVE Urine Cannabinoids Screen Pos NEGATIVE White Blood Count 10.9 H 4.4-10.8 10^3/uL Red Blood Count 5.34 4.5-5.90 10^6/uL Hemoglobin 16.9 13.5-17.5 g/dL Hematocrit 47.6 41.0-53.0 % Mean Corpuscular Volume 89.0 80.0-100.0 fL Mean Corpuscular Hemoglobin 31.6 28.0-32.0 pg Mean Corpuscular Hemoglobin Concent 35.5 32.0-36.0 g/dL Red Cell Distribution Width 13.6 11.8-14.3 % Platelet Count 261 140-450 10^3/uL Mean Platelet Volume 8.4 6.9-10.8 fL Neutrophils (%) (Auto) 81.5 H 37.0-80.0 % Lymphocytes (%) (Auto) 11.5 10.0-50.0 % Monocytes (%) (Auto) 6.9 0.0-12.0 % Eosinophils (%) (Auto) 0.0 0.0-7.0 % Basophils (%) (Auto) 0.1 0.0-2.0 % Neutrophils # (Auto) 8.9 H 1.6-8.6 10 ^3/uL Lymphocytes # (Auto) 1.3 0.4-5.4 10 ^3/uL Monocytes # (Auto) 0.8 0-1.3 10 ^3/uL Eosinophils # (Auto) 0 0-0.8 10 ^3/uL Basophils # (Auto) 0 0-0.2 10 ^3/uL Nucleated Red Blood Cells 0.4 % Sodium Level 146 H 136-145 mmol/L Potassium Level 4.1 3.5-5.1 mmol/L Chloride Level 109 H 98-107 mmol/L Carbon Dioxide Level 27 20-31 mmol/L Anion Gap 10 5-15 Blood Urea Nitrogen 13 9-23 mg/dL Creatinine 1.27 0.700-1.30 mg/dL Glomerular Filtration Rate Calc 77 >90 mL/min BUN/Creatinine Ratio 10.2 10.0-20.0 Serum Glucose 126 H 74-106 mg/dL Calcium Level 10.1 8.7-10.4 mg/dL Total Bilirubin 0.5 0.2-1.0 mg/dL Aspartate Amino Transferase (AST) 18 13-40 U/L Alanine Aminotransferase (ALT) 17 7-40 U/L Alkaline Phosphatase 102 46-116 U/L Total Protein 8.1 5.7-8.2 g/dL Albumin 5.5 H 3.2-4.8 g/dL Troponin I High Sensitivity < 3 L </=54 ng/L Lipase 24 12-53 U/L Test 07/19/25 09:58 07/19/25 05:16 Range/Units Urine Color Yellow Yellow Urine Clarity Clear Clear Urine pH 6.5 5.0-9.0 Urine Specific [place] 1.034 1.001-1.035 Urine Protein 1+ H Negative Urine Ketones 1+ H Negative Urine Blood Negative Negative /uL Urine Nitrite Negative Negative Urine Bilirubin Negative Negative Urine Urobilinogen Normal Negative mg/dL Urine Leukocyte Esterase Negative Negative /uL Urine RBC 2 0 - 3 /hpf Urine Microscopic WBC 2 0-3 /HPF Urine Squamous Epithelial Cells Few <5 /hpf Urine Bacteria None seen None Seen /hpf Urine Mucus Few None Seen Urine Glucose Normal Normal mg/dL Influenza Type A Antigen Negative Negative Influenza Type B Antigen Negative Negative SARS-CoV-2 Antigen (Rapid) Negative NEGATIVE Imaging: Assessment: Nausea and vomiting improved now Marijuana use Plan: Discussed with Dr. Crowe Conservative management recommended From GI point of view patient can be discharged home, follow-up in GI clinic as needed Discussed plan with patient and RN Thank you for this consult Date of Service: Jul 21, 2025 Billing Provider: ALEX AYALA Common Visit Codes: CONSULT ONLY Consultation Codes: [id number] CONSULT <45MIN ALEX AYALA Jul 21, 2025 13:46
--- NOTE | 2025-07-21 15:22 | DVHDS2 ---
Discharge Summary Date of Admission Jul 19, 2025 at 21:22 Date of Discharge: Jul 21, 2025 Labs/Diagnostic Data: Laboratory Results Test 07/20/25 21:40 07/20/25 03:38 07/19/25 17:54 07/19/25 17:04 Urine Opiates Screen Pos (NEGATIVE) Urine Fentanyl Screen Neg (NEGATIVE) Urine Barbiturates Screen Neg (NEGATIVE) Urine Phencyclidine Screen Neg (NEGATIVE) Urine Amphetamines Screen Neg (NEGATIVE) Urine Benzodiazepines Screen Neg (NEGATIVE) Urine Cocaine Screen Neg (NEGATIVE) Urine Cannabinoids Screen Pos (NEGATIVE) White Blood Count 10.9 10^3/uL (4.4-10.8) Red Blood Count 5.34 10^6/uL (4.5-5.90) Hemoglobin 16.9 g/dL (13.5-17.5) Hematocrit 47.6 % (41.0-53.0) Mean Corpuscular Volume 89.0 fL (80.0-100.0) Mean Corpuscular Hemoglobin 31.6 pg (28.0-32.0) Mean Corpuscular Hemoglobin Concent 35.5 g/dL (32.0-36.0) Red Cell Distribution Width 13.6 % (11.8-14.3) Platelet Count 261 10^3/uL (140-450) Mean Platelet Volume 8.4 fL (6.9-10.8) Neutrophils (%) (Auto) 81.5 % (37.0-80.0) Lymphocytes (%) (Auto) 11.5 % (10.0-50.0) Monocytes (%) (Auto) 6.9 % (0.0-12.0) Eosinophils (%) (Auto) 0.0 % (0.0-7.0) Basophils (%) (Auto) 0.1 % (0.0-2.0) Neutrophils # (Auto) 8.9 10 ^3/uL (1.6-8.6) Lymphocytes # (Auto) 1.3 10 ^3/uL (0.4-5.4) Monocytes # (Auto) 0.8 10 ^3/uL (0-1.3) Eosinophils # (Auto) 0 10 ^3/uL (0-0.8) Basophils # (Auto) 0 10 ^3/uL (0-0.2) Nucleated Red Blood Cells 0.4 % Sodium Level 146 mmol/L (136-145) Potassium Level 4.1 mmol/L (3.5-5.1) Chloride Level 109 mmol/L (98-107) Carbon Dioxide Level 27 mmol/L (20-31) Anion Gap 10 (5-15) Blood Urea Nitrogen 13 mg/dL (9-23) Creatinine 1.27 mg/dL (0.700-1.30) Glomerular Filtration Rate Calc 77 mL/min (>90) BUN/Creatinine Ratio 10.2 (10.0-20.0) Serum Glucose 126 mg/dL (74-106) Calcium Level 10.1 mg/dL (8.7-10.4) Total Bilirubin 0.5 mg/dL (0.2-1.0) Aspartate Amino Transferase (AST) 18 U/L (13-40) Alanine Aminotransferase (ALT) 17 U/L (7-40) Alkaline Phosphatase 102 U/L (46-116) Total Protein 8.1 g/dL (5.7-8.2) Albumin 5.5 g/dL (3.2-4.8) Troponin I High Sensitivity < 3 ng/L (</=54) Lipase 24 U/L (12-53) Test 07/19/25 09:58 07/19/25 05:16 Urine Color Yellow (Yellow) Urine Clarity Clear (Clear) Urine pH 6.5 (5.0-9.0) Urine Specific [place] 1.034 (1.001-1.035) Urine Protein 1+ (Negative) Urine Ketones 1+ (Negative) Urine Blood Negative /uL (Negative) Urine Nitrite Negative (Negative) Urine Bilirubin Negative (Negative) Urine Urobilinogen Normal mg/dL (Negative) Urine Leukocyte Esterase Negative /uL (Negative) Urine RBC 2 /hpf (0 - 3) Urine Microscopic WBC 2 /HPF (0-3) Urine Squamous Epithelial Cells Few /hpf (<5) Urine Bacteria None seen /hpf (None Seen) Urine Mucus Few (None Seen) Urine Glucose Normal mg/dL (Normal) Influenza Type A Antigen Negative (Negative) Influenza Type B Antigen Negative (Negative) SARS-CoV-2 Antigen (Rapid) Negative (NEGATIVE) Other Laboratory Tests 07/20/25 03:38 Brief Hx & Hospital Course: 34 y/o male patient presents with c/o fatigue, headache, and nausea. Patient was admitted on July 22, 2025 for intractable abdominal pain and nausea and vomiting. Patient states he does use cannabis however he stopped 3 days prior to admission. 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 Patient was given IV fluids and antiemetics. Patient's condition improved and he was cleared for discharge. Patient was instructed to follow-up with his PCP within one week. There were no complaints or new complaints upon discharge, all questions and concerns were answered. Patient was advised to return to the ER or call 911 if any headaches, dizziness, shortness of breath, chest pain, bleeding, fevers, or worsening of medical condition. Patient/Family was counseled about treatment plan, medications, possible side effects, patient verbalized understanding. All questions were answered to the best of my ability. The patient symptoms improved and they are okay to be DC. Condition at Discharge: Stable Final Diagnosis/Problems List upper viral syndrome nausea cannibas hyperemesis Discharge Disposition: Home Discharge Instruct/Medications Diet: Regular Activity: No Restrictions, As Tolerated Follow Up/Referral: pcp 1 week Medications: doxycycline zofran Scheduled Doxycycline (Monohydrate) (Doxycycline), 100 MG PO BID Scheduled PRN Famotidine (Pepcid Tablet), 1 TAB PO BID PRN Ondansetron Odt 4MG Tab (Zofran Po), 4 MG PO Q8HP PRN Discontinued Medications Ibuprofen Micronized (Ibuprofen), 600 MG PO Q6HPRN PRN Ondansetron (Zofran), 1 TAB PO Q6HR Ondansetron HCl (Ondansetron Hydrochloride), 8 MG PO Q6HP PRN Discharge Statement: "Patient was advised to return to the ER or call 911 if any headaches, dizziness, shortness of breath, chest pain, abdominal pain, bleeding, fevers, or worsening of medical condition. Patient was counseled about treatment plan, medications, possible side effects, patientverbalized understanding. All questions were answered to the best of my ability. This discharge took greater then 30 minutes in planning, reviewing documentation, counseling the patient, and discussing with other team members." DME: Diagnosis: march dc after lunch ASSESSMENT ASSESSMENT Assessment upper viral syndrome nausea cannibas hyperemesis ANGELIQUE RAMOS NP Jul 21, 2025 15:22
--- NOTE | 2025-07-21 19:12 | ECG ---
[facility] Test Date: 2025-07-19 Test Time: 16:31:37 Pat Name: SORAYA WANG Department: ED Room: 0284T A Gender: M Database Analyst: TANIYA : 1990 Requested By: ALEYDA GRIER Order Number: [id number] Reading MD: Bacilio Burns Measurements Intervals [place] Rate: 49 P: -8 NE: 131 QRS: 52 QRSD: 103 T: -17 QT: 424 QTc: 383 Interpretive Statements Sinus bradycardia Repol abnrm suggests ischemia, inferior leads ST elevation, consider lateral injury Electronically Signed On 07-22-2025 13:11:20 PDT by Bacilio Burns Please click the below link to view image of tracing.
== END 2025-07-21 16:54 | disposition home or self-care (01) | DRG 723 ==
LOC: ER 16:23 → OVERFLOW 21:22 → TELE-WESTW 07-20 17:49
PROVIDERS: ADMIT Nurse Practitioner; ATTEND Nurse Practitioner
DX: B34.9 Viral infection, unspecified (principal); D75.1 Secondary polycythemia; E66.9 Obesity, unspecified; Z20.822 Contact with and (suspected) exposure to COVID-19; F12.90 Cannabis use, unspecified, uncomplicated; F17.210 Nicotine dependence, cigarettes, uncomplicated; Z87.442 Personal history of urinary calculi; Z79.899 Other long term (current) drug therapy; Z79.1 Long term (current) use of non-steroidal anti-inflammatories (NSAID); Z68.32 Body mass index [BMI] 32.0-32.9, adult
CPT/HCPCS: 36415; 71045; 80048; 80053; 80307; 81001; 83690; 84484; 85025; 87426; 87804; 93005; 96361; 96374; 96375; 99291; G0378; J2405; J2470